=== PATIENT | male | born 1935 | race Caucasian/White ===

== ENCOUNTER → 2017-01-13 | Outpatient (POV) | payer MEDICARE, BC, SELFPAY | PROVIDERS: Family Provider Family Medicine; PCP Family Medicine; Visit Provider Urology | DX: C61 Malignant neoplasm of prostate (principal) | CPT/HCPCS: 87081 ==

== ENCOUNTER 2017-01-28 17:30 | Outpatient (RCR) | payer MEDICARE, BC, SELFPAY | END 2017-02-20 | LOC: PT 17:30 | PROVIDERS: PCP Family Medicine; Visit Provider Family Medicine | DX: L97.529 Non-pressure chronic ulcer of other part of left foot with unspecified severity (principal); E11.621 Type 2 diabetes mellitus with foot ulcer | CPT/HCPCS: G8990; G8991; G8992; 97162; 97597 ==

== ENCOUNTER → 2017-02-10 | Outpatient (POV) | payer MEDICARE, BC, SELFPAY | PROVIDERS: Visit Provider Internal Medicine | DX: I10 Essential (primary) hypertension (principal) | CPT/HCPCS: 93005 ==

== ENCOUNTER → 2017-02-18 | Outpatient (CLI) | payer MEDICARE, BC, SELFPAY | PROVIDERS: Visit Provider Urology | DX: C61 Malignant neoplasm of prostate (principal) | CPT/HCPCS: 36415; 84153 ==

== ENCOUNTER 2017-02-24 15:11 | Inpatient (IN) | payer MEDICARE, BC, SELFPAY ==
[2017-02-24] VITALS (16 sets, daily range): BP systolic 131–248; BP diastolic 51–104; PULSE 54–85; RESP 13–20; TEMP 36.3–36.6; O2SAT 93–99
--- NOTE | 2017-02-24 17:24 | HMH.HP ---
*Admission Date: 02/24/17 <Ambika Orozco 02/24/17 17:33> *Chief complaint: hypertension <Ambika Orozco 02/24/17 18:24> *History of present illness: Mr Rivas is a 81 year old male with a history of ASCVD, AVR, PVD Type 2 DM, RI and prostate cancer was seen in Dr. Corona office with noted high BP; he then had an appointment with acute dialysis registered nurse with BP noted to be extremely high (SBP>200 and DBP >110). Dr. Bhatia consulted with Dr. Baum and he was directly admitted to [facility] and placed on Nitroprusside gtt Recent MRI of the left great toe revealed osteomyelitis; he was seeing Dr. Bhatia for clearance for surgical intervention by Dr. Baeza. <Ambika Orozco 02/24/17 19:14> [facility] History Medical History: Reports:: Congestive Heart Failure, Coronary Artery Disease, Diabetes Mellitus Type 2, Hyperlipidemia, Hypertension, Peripheral Artery Disease, Renal Disease <Ambika Orozco 02/24/17 17:33> Other Medical History: Reports: Anemia, Arthritis <Ambika Orozco 02/24/17 17:33> Comment: DJD of the right knee; VD; sleep apnea; prostate cancer <Ambika Orozco 02/24/17 17:33> Laterality Cases: Right: Carotid Endarterectomy (2000; left 2007), Bilateral: Cataract <Ambika Orozco 02/24/17 17:33> Other Surgeries: Yes: Other (AVR/triple bypass 2007; pTCA L leg 2008; angioplasty of left leg 2009) <Ambika Orozco 02/24/17 17:33> - *Social History Smoking Status: Never smoker <Ambika Orozco 02/24/17 17:33> Alcohol Intake: never <Ambika Orozco 02/24/17 17:33> *Family Hx:: Coronary Artery Disease, Diabetes <Ambika Orozco 02/24/17 17:33> Comment: lung cancer <Ambika Orozco 02/24/17 17:33> Review of Systems - Constitutional Denies anorexia, Denies body ache(s), Denies fatigue, Denies headache(s) <Ambika Orozco 02/24/17 19:14> - ENT Reports abnormal hearing, Denies ear pain, Denies headache(s), Denies sore throat <Orozco,[facility] 02/24/17 19:14> - *Cardiovascular Reports leg sores, Denies chest pain, Denies excessive sweating, Denies shortness of breath, Denies generalized swelling, Denies irregular heart rhythm <Orozco,[facility] 02/24/17 19:14> - *Respiratory Denies chest congestion, Denies cough, Denies shortness of breath <Orozco,[facility] 02/24/17 19:14> - *Gastrointestinal Denies change in bowel habits, Denies change in stools, Denies constipation, Denies vomiting blood, Denies black, tarry stools, Denies nausea <[facility] 02/24/17 19:14> - *Genitourinary Denies difficulty urinating <Orozco,[facility] 02/24/17 19:14> - *Musculoskeletal Reports abnormal walking, Reports joint pain <[facility] 02/24/17 19:14> - *Neurologic Reports abnormal walking, Reports abnormal hearing, Reports lack of coordination <Orozco,[facility] 02/24/17 19:14> Meds Home Medications Medication Instructions Recorded Confirmed Type aspirin 81 mg tablet,delayed 81 mg PO DAILY tab 02/19/17 02/25/17 History release carvedilol 25 mg tablet 25 mg PO BID tab 02/19/17 02/25/17 History clonidine HCl 0.2 mg tablet 0.2 mg PO BID tab 02/19/17 02/25/17 History clopidogrel 75 mg tablet 75 mg PO DAILY tab 02/19/17 02/25/17 History docusate sodium 250 mg capsule 250 mg PO DAILY cap 02/19/17 02/25/17 History hsnqhawp-jrw-ymshk acid 300 1 tab PO DAILY each 02/19/17 02/25/17 History mcg-lycopene 600 mcg-lutein 300 mcg tablet mupirocin 2 % topical ointment 1 applicatio TOPICAL DAILY g 02/19/17 02/25/17 History tramadol 50 mg tablet 50 mg PO TIDP tab 02/19/17 02/25/17 History triamcinolone acetonide 0.1 1 applic TOPICAL DAILY g 02/19/17 02/25/17 History %-emollient combination no86 topical cream Betamethasone/Propylene Glyc 15 gm TP BID 02/24/17 02/25/17 History [Betamethasone Dp Aug 0.05% Crm] metOLazone [Metolazone 5mg Tab] 5 mg PO DAILY 02/24/17 02/25/17 History <Taco Baum - 02/25/17 10:59> Allergies Allergy/AdvReac Type Severity Reaction Status Date / Time No Known Allergies A
--- NOTE | 2017-02-24 17:28 | P.HP_ITS ---
*Admission Date: 02/24/17 <Ambika Orozco 02/24/17 17:33> *Chief complaint: hypertension <Ambika Orozco 02/24/17 18:24> *History of present illness: Mr Rivas is a 81 year old male with a history of ASCVD, AVR, PVD Type 2 DM, RI and prostate cancer was seen in Dr. Corona office with noted high BP; he then had an appointment with business analyst with BP noted to be extremely high (SBP> 200 and DBP >110). Dr. Bhatia consulted with Dr. Baum and he was directly admitted to [facility] and placed on Nitroprusside gtt Recent MRI of the left great toe revealed osteomyelitis; he was seeing Dr. Bhatia for clearance for surgical intervention by Dr. Baeza. <Ambika Orozco 02/24/17 19:14> [facility] History Medical History: Reports:: Congestive Heart Failure, Coronary Artery Disease, Diabetes Mellitus Type 2, Hyperlipidemia, Hypertension, Peripheral Artery Disease, Renal Disease <Ambika Orozco 02/24/17 17:33> Other Medical History: Reports: Anemia, Arthritis <Ambika Orozco 02/24/17 17 :33> Comment: DJD of the right knee; VD; sleep apnea; prostate cancer <Ambika Orozco 02/24/17 17:33> Laterality Cases: Right: Carotid Endarterectomy (2000; left 2007), Bilateral: Cataract <Ambika Orozco 02/24/17 17:33> Other Surgeries: Yes: Other (AVR/triple bypass 2007; pTCA L leg 2008; angioplasty of left leg 2009) <Ambika Orozco 02/24/17 17:33> - *Social History Smoking Status: Never smoker <Ambika Orozco 02/24/17 17:33> Alcohol Intake: never <Ambika Orozco 02/24/17 17:33> *Family Hx:: Coronary Artery Disease, Diabetes <Ambika Orozco 02/24/17 17:33 > Comment: lung cancer <Ambika Orozco 02/24/17 17:33> Review of Systems - Constitutional Denies anorexia, Denies body ache(s), Denies fatigue, Denies headache(s) < Ambika Orozco 02/24/17 19:14> - ENT Reports abnormal hearing, Denies ear pain, Denies headache(s), Denies sore throat <Orozco,[facility] 02/24/17 19:14> - *Cardiovascular Reports leg sores, Denies chest pain, Denies excessive sweating, Denies shortness of breath, Denies generalized swelling, Denies irregular heart rhythm <Orozco,[facility] 02/24/17 19:14> - *Respiratory Denies chest congestion, Denies cough, Denies shortness of breath <Orozco, [facility] 02/24/17 19:14> - *Gastrointestinal Denies change in bowel habits, Denies change in stools, Denies constipation, Denies vomiting blood, Denies black, tarry stools, Denies nausea <Orozco [facility] 02/24/17 19:14> - *Genitourinary Denies difficulty urinating <[facility] 02/24/17 19:14> - *Musculoskeletal Reports abnormal walking, Reports joint pain <[facility] 02/24/17 19:14> - *Neurologic Reports abnormal walking, Reports abnormal hearing, Reports lack of coordination <[facility] 02/24/17 19:14> Meds Home Medications Medication Instructions Recorded Confirmed Type aspirin 81 mg tablet,delayed 81 mg PO DAILY tab 02/19/17 02/25/17 History release carvedilol 25 mg tablet 25 mg PO BID tab 02/19/17 02/25/17 History clonidine HCl 0.2 mg tablet 0.2 mg PO BID tab 02/19/17 02/25/17 History clopidogrel 75 mg tablet 75 mg PO DAILY tab 02/19/17 02/25/17 History docusate sodium 250 mg capsule 250 mg PO DAILY cap 02/19/17 02/25/17 History aqvidkcn-tda-aotmt acid 300 1 tab PO DAILY each 02/19/17 02/25/17 History mcg-lycopene 600 mcg-lutein 300 mcg tablet mupirocin 2 % topical ointment 1 applicatio TOPICAL DAILY g 02/19/17 02/25/17 History tramadol 50 mg tablet 50 mg PO TIDP tab 02/19/17 02/25/17 History triamcinolone acetonide 0.1 1
[2017-02-25] VITALS (48 sets, daily range): BP systolic 127–226; BP diastolic 49–123; PULSE 57–90; RESP 13–24; TEMP 36.3–37; O2SAT 92–100
--- NOTE | 2017-02-25 05:24 | PC.NURSE ---
TITRATED DRIP UP AND DOWN THOUGHOUT SHIFT 2225 - 26ml/hr 2320 - 48 ml/hr 0030 - 40 ml/hr 0430 - 48 ml/hr PT CV/O BLOOD PRESSURE CUFF HURTING HIS ARM. TOOK CUFF OFF - MASSAGED ARM, TRIED TO SWITCH ARMS BUT DRIP GOING IN RIGHT ARM, RETURNED CUFF TO LEFT ARM. BP UP AND DOWN WITH DRIP TITRATED TO KEEP BP DOWN AND ACCORDING TO ORDER. PT IN RECLINER MOST OF SHIFT, REPORTS THAT'S HOW HE SLEEPS AT HOME. IS LITERALLY RIGHT BY HIS SIDE. ENCOURAGED TO ALLOW STAFF TO PROVIDE CARE WHEN NEEDED. PT HAD ONE EPISODE OF VOMITING, CLEAR IN COVERS, DIFFICULT TO SEE HOW MUCH. PT REPORTED HE HAD NO WARNING, JUST SUDDENLY THREW UP. NO C/O CHEST PAIN, NO DIAPHORESIS, NO S/S OF HEART PROBLEMS. PT AND DOZED ON AND OFF THIS SHIFT WITH NEITHER GETTING MUCH SLEEP. NPO FOR EMMY CONSULT THIS AM. REMAINED SAFE THIS SHIFT.
--- NOTE | 2017-02-25 06:49 | PC.NURSE ---
INCREASED PT'S DRIP AGAIN TO 72 R/T ELEVATED BP. 0615 -181/88, 0645 - 161/110. WILL CONTINUE TO MONITOR.
--- NOTE | 2017-02-25 07:08 | PC.NURSE ---
Pt stated not interested. Brochure given
[2017-02-25 07:35] LABS: Basophils # 0.1 K/mm3 (0-0.2); Basophils % 0.6 % (0.1-2.0); Eosinophils # 0.2 K/mm3 (0.0-0.4); Eosinophils % 2.2 % (0.1-12.0); Hematocrit 28.7 % (42.0-52.0); Hemoglobin 9.1 g/dL (14.1-18.0); Lymphocytes # 1.1 K/mm3 (0.7-4.5); Lymphocytes % 12.3 K/mm3 (10-50); Mean Corpuscular HGB Conc 31.6 g/dL (31.8-35.4); Mean Corpuscular Hemoglobin 28.6 pg (27.0-31.2); Mean Corpuscular Volume 90.3 fl (80-94); Mean Platelet Volume 7.5 fl (7.4-10.4); Monocytes # 0.6 K/mm3 (0.1-1.0); Monocytes % 6.6 % (1.7-9.3); Neutrophils # 6.9 K/mm3 (1.8-7.8); Neutrophils % 78.3 % (37.0-80.0); Platelet Count 382 K/mm3 (142-424); Red Blood Count 3.18 M/mm3 (4.60-6.20); Red Cell Distribution Width 13.3 % (11.5-17.5); White Blood Count 8.8 K/mm3 (4.8-10.8)
[2017-02-25 07:41] LABS: Alanine Aminotransferase 20 U/L (12-78); Albumin/Globulin Ratio 0.9 (1.1-1.8); Alkaline Phosphatase 43 U/L (46-116); Anion Gap 10.9 mEq/L (5-15); Aspartate Amino Transferase 29 U/L (15-37); Bilirubin,Total 0.3 mg/dL (0.2-1.0); Blood Urea Nitrogen 43 mg/dL (7-18); Calcium 9.8 mg/dL (8.5-10.1); Carbon Dioxide 26 mmol/L (21.0-32.0); Chloride 105 mmol/L (98-107); Creatinine Clearance Estimated 29 mg/ml (0-300); Estimated Glomerular Filt Rate 26 ml/min (>60); GFR (African American) 32 ML/MIN (>60); Globulin 3.4 gm/dl (1.3-3.2); Glucose 220 mg/dL (74-106); Magnesium 1.9 mg/dL (1.4-2.2); Potassium 3.9 mmoL/L (3.5-5.1); Sodium 138 mmol/L (136-145); Total Protein,Serum 6.4 gm/dL (6.4-8.2)
--- NOTE | 2017-02-25 08:05 | HMH.PHAVTE ---
[facility] Pharmacy VTE Monitoring - Patient Demographics Admission date: 02/24/17 Report Date: 02/25/17 Time: 08:05 Allergies/Adverse Reactions: No Known Allergies Allergy (Unverified 02/10/17 14:34) Height: 1.75 m Weight: 82.236 kg Patient Problems: Current Active Problems (Last Reviewed 02/24/17 @ 18:36 by Desirae Quan RN) ASCVD (arteriosclerotic cardiovascular disease) (Chronic) Diabetes mellitus (Chronic) PVD (peripheral vascular disease) (Chronic) Prostate cancer (Chronic) Osteomyelitis (Acute) - VTE Risk Labs: VTE Related Lab Results Hgb 9.1 g/dL (14.1-18.0) L 02/25/17 06:22 Hct 28.7 % (42.0-52.0) L 02/25/17 06:22 Plt Count 382 K/mm3 (142-424) 02/25/17 06:22 BUN 43 mg/dL (7-18) H 02/25/17 06:22 Creatinine 2.40 mg/dL (0.70-1.30) H 02/25/17 06:22 Estimated Creat Clear 29 mg/ml (0-300) 02/25/17 06:22 Clinical Trial Participant: No - Prophylaxis VTE Prophylaxis Ordered?: Yes Types of VTE Prophylaxis: TEDS Knee High Location of Applied Device: Bilateral Lower Extremeties
--- NOTE | 2017-02-25 08:25 | HMH.ACPN ---
Internal Medicine - PN: Subj *Date: 02/25/17 *Time: 08:25 Interval history: Pt states his BP has been up and down. He denies any pain. He did not rest well last night. He is NPO this am for a cardiology consult. Exam Vital signs and Labs for Last 24 Hours: Temp Pulse Resp BP Pulse Ox 97.4 F L 78 13 196/84 95 02/25/17 05:14 02/25/17 07:00 02/25/17 07:00 02/25/17 07:00 02/25/17 07:00 Short CBC 02/25/17 Range/Units 06:22 WBC 8.8 (4.8-10.8) K/mm3 Hgb 9.1 L (14.1-18.0) g/dL Hct 28.7 L (42.0-52.0) % Plt Count 382 (142-424) K/mm3 BMP 02/25/17 06:22 Sodium 138 Potassium 3.9 Chloride 105 Carbon Dioxide 26 BUN 43 H Creatinine 2.40 H Glucose 220 H Calcium 9.8 Liver Function 02/25/17 Range/Units 06:22 Total Bilirubin 0.3 (0.2-1.0) mg/dL AST 29 (15-37) U/L ALT 20 (12-78) U/L Alkaline Phosphatase 43 L (46-116) U/L Albumin 3.0 L (3.4-5.0) gm/dL I & O for Last 24 hours: Intake & Output 02/22/17 02/23/17 02/24/17 02/25/17 11:59 11:59 11:59 11:59 Intake Total 643.000 / 643.000 Output Total 795 / 795 Balance -152.000 / -152.000 no acute distress - *Routine Respiratory Exam Present: CTA bilaterally - *Routine Cardiovascular Exam Present: RRR - *Routine Abdominal Exam Present: soft, normoactive bowel sounds. Absent: tenderness - *Routine Extremities Exam Absent: edema Assessment and Plan (1) Asymptomatic hypertensive urgency Current visit: Yes Status: Acute Category: Medical Code(s): I16.0 - Hypertensive urgency (2) HHD (hypertensive heart disease) Current visit: No Status: Chronic Category: Medical Code(s): I11.9 - Hypertensive heart disease without heart failure (3) Osteomyelitis Current visit: Yes Status: Acute Category: Medical Code(s): M86.9 - Osteomyelitis, unspecified (4) ASCVD (arteriosclerotic cardiovascular disease) Current visit: Yes Status: Chronic Category: Medical Code(s): I25.10 - Atherosclerotic heart disease of [place] coronary artery without angina pectoris (5) Diabetes mellitus Current visit: Yes Status: Chronic Category: Medical Code(s): E11.9 - Type 2 diabetes mellitus without complications (6) PVD (peripheral vascular disease) Current visit: Yes Status: Chronic Category: Medical Code(s): I73.9 - Peripheral vascular disease, unspecified (7) Prostate cancer Current visit: Yes Status: Chronic Category: Medical Code(s): C61 - Malignant neoplasm of prostate - Assessment and plan all Dx Assessment and Plan for all problems:: Cardiology to see patient today d/t elevated BP. Pt seen and examined. does report this morning that he has had some episodes of confusion over the past few days. He still denies headache, CP, SOA, dizziness.
[2017-02-25 12:11] LABS: POC Glucose,Bedside 361 mg/dL
--- NOTE | 2017-02-25 13:34 | CARE MANAGER ---
Patient was admitted ACUTE with a diagnosis of hypertensive urgency. Her treatment plan will include IV meds, moitoring and investigative studies. CM staff will follow and assist.
--- NOTE | 2017-02-25 14:51 | HMH.CARDPN2 ---
Subjective PN (PG) Date: 02/25/17 Time: 14:51 Principal diagnosis: Hypertensive urgency Interval history: No complaints. Legs much improved. Still on Nipride but with reported shortage in pharmacy. Will switch meds around to wean off nipride. Do not want to perform angiogram due to CRF with Cr of 2.4-2.5 and high likelihood of progressing to dialysis. PN Exam ([facility]) Vital signs: Temp Pulse Resp BP Pulse Ox 98 F 74 22 151/68 95 02/25/17 12:00 02/25/17 12:34 02/25/17 12:34 02/25/17 12:34 02/25/17 12:34 - Constitutional no acute distress - Routine Respiratory Exam Present: distant breath sounds - Routine Cardiovascular Exam Present: RRR - Routine Extremities Exam Present: edema Comments: left leg wrapped. A/P Progress Note ([facility] Own[facility]) (1) Asymptomatic hypertensive urgency Status: Acute Assessment and plan: Will stop norvasc and clonidine to reduce edema. Wean off nipride as able. Will use IV nitroglycerin to help with BP. Increase coreg to 37.5 mg BID Add lisinopril 20 mg BID and follow renal status closely. If needed, then consider pacemaker to allow increased use of beta andrea. Current Visit: Yes (2) Osteomyelitis Status: Acute Current Visit: Yes (3) ASCVD (arteriosclerotic cardiovascular disease) Status: Chronic Assessment and plan: clinically stable. Current Visit: Yes (4) Diabetes mellitus Status: Chronic Current Visit: Yes (5) PVD (peripheral vascular disease) Status: Chronic Current Visit: Yes (6) HHD (hypertensive heart disease) Status: Chronic Current Visit: No (7) CRF (chronic renal failure) Status: Acute Assessment and plan: Will get renal duplex to assess for LULI as possible etiology for difficult HTN to control. Current Visit: Yes - Time Spent With Patient less than 15 minutes (Pt seen with Dr. Bhatia.)
--- NOTE | 2017-02-25 14:54 | P.PN_ITS ---
Subjective PN (PG) Date: 02/25/17 Time: 14:51 Principal diagnosis: Hypertensive urgency Interval history: No complaints. Legs much improved. Still on Nipride but with reported shortage in pharmacy. Will switch meds around to wean off nipride. Do not want to perform angiogram due to CRF with Cr of 2.4-2.5 and high likelihood of progressing to dialysis. PN Exam ([facility]) Vital signs: Temp Pulse Resp BP Pulse Ox 98 F 74 22 151/68 95 02/25/17 12:00 02/25/17 12:34 02/25/17 12:34 02/25/17 12:34 02/25/17 12:34 - Constitutional no acute distress - Routine Respiratory Exam Present: distant breath sounds - Routine Cardiovascular Exam Present: RRR - Routine Extremities Exam Present: edema Comments: left leg wrapped. A/P Progress Note ([facility]) (1) Asymptomatic hypertensive urgency Status: Acute Assessment and plan: Will stop norvasc and clonidine to reduce edema. Wean off nipride as able. Will use IV nitroglycerin to help with BP. Increase coreg to 37.5 mg BID Add lisinopril 20 mg BID and follow renal status closely. If needed, then consider pacemaker to allow increased use of beta andrea. Current Visit: Yes (2) Osteomyelitis Status: Acute Current Visit: Yes (3) ASCVD (arteriosclerotic cardiovascular disease) Status: Chronic Assessment and plan: clinically stable. Current Visit: Yes (4) Diabetes mellitus Status: Chronic Current Visit: Yes (5) PVD (peripheral vascular disease) Status: Chronic Current Visit: Yes (6) HHD (hypertensive heart disease) Status: Chronic Current Visit: No (7) CRF (chronic renal failure) Status: Acute Assessment and plan: Will get renal duplex to assess for LULI as possible etiology for difficult HTN to control. Current Visit: Yes - Time Spent With Patient less than 15 minutes (Pt seen with Dr. Bhatia.)
--- NOTE | 2017-02-25 18:51 | PC.NURSE ---
PATIENT HAS BEEN SITTING IN CHAIR T/O SHIFT. DENIES PAIN AT THIS TIME. NIPRIDE AND NITRO GTTS ARE CURRENTLY INFUSING AT 0.488 MCG/KG/MIN AND 110MCG RESPECTIVELY. HE HAS BEEN NSR ON TELEMETRY. DR VINES WAS CONTACTED AT DINNER TIME TO REQUEST SSI FOR PATIENT WITH A FSBS OF 493. MEDIUM INTENSITY WAS ORDERED AND ADMINISTERED PER APR. CALL LIGHT WITHIN REACH WILL CONTINUE TO MONITOR
[2017-02-25 21:29] LABS: POC Glucose,Bedside 493 mg/dL
[2017-02-25 21:29] LABS: POC Glucose,Bedside 129 mg/dL
[2017-02-26] VITALS (54 sets, daily range): BP systolic 111–222; BP diastolic 47–125; PULSE 50–781; RESP 12–97; TEMP 36.8–38.1; O2SAT 90–98
--- NOTE | 2017-02-26 02:53 | PC.NURSE ---
Drips titrated this shift; Nitro - 2115 from 33 to 34ml/hr Nipride - 2130 from 12 to 19 Nipride - 2300 - from 19 to 15 Nipride - 0100 - from 15 to 14 BP still fluctuating pt sat in chair all shift, nothing acute to report, remained safe,.
--- NOTE | 2017-02-26 04:20 | PC.NURSE ---
Increased Nitro to 40 - Nipride to 19. recent bp's elevated 215/72, 179/86, 185/74, will continue to monitor. pt been in chair all shift, moves back and forth, will occasionally lay back but majority of time huches over forward. He is quite restless with constantly moving hands fidgeting with wires, oxygen monitor, iv, bst, he is in constant motion. Ran wires up his gown and through the back as he removes a lead approximately every 30-40 mins. Encouraged pt to rest, it was reported in shift report last night, pt had slept most of the day as he is not sleeping at night much. Will continue monitoring and recording bp's and titrating drips accordingly. pt remained safe this shit.
[2017-02-26 06:29] LABS: POC Glucose,Bedside 243 mg/dL
[2017-02-26 08:01] LABS: POC Glucose,Bedside 296 mg/dL
[2017-02-26 08:01] LABS: POC Glucose,Bedside 237 mg/dL
--- NOTE | 2017-02-26 08:20 | PC.NURSE ---
at this time patient is to remain npo until radiology takes patient down for tests. educated this to patient. will continue to monitor
--- NOTE | 2017-02-26 08:25 | HMH.CARDPN2 ---
Subjective PN (PG) Date: 02/26/17 Time: 08:00 Principal diagnosis: Hypertensive urgency Interval history: No complaints. Legs much improved. Still on Nipride but with weaning off. No complaints but notes some confusion this AM. Not sleeping well here in hospital. History of KYARA but intolerant of the CPAP. Nitroglycerin gtt at 40 mcg/ min. BP labile per nurse with SBP from 120-190 mm Hg. Do not want to perform angiogram due to CRF with Cr of 2.4-2.5 and high likelihood of progressing to dialysis. Will check renal duplex today to assess for LULI. PN Exam ([facility]) Vital signs: Temp Pulse Resp BP Pulse Ox 98.8 F 88 19 117/102 90 L 02/26/17 08:22 02/26/17 06:30 02/26/17 05:30 02/26/17 06:30 02/26/17 06:30 - Constitutional no acute distress Comments: Sitting in chair in NAD. Answers 2018, Ronnie, my beautiful to year, place and familiar person. No complaint of chest pain. Doesn't ambulate much except in room. - Routine Cardiovascular Exam Present: RRR, murmur A/P Progress Note ([facility]) (1) Asymptomatic hypertensive urgency Status: Acute Assessment and plan: Will increase coreg to 50 mg BID to try and get off IV gtt's. Check BMP and renal duplex. Consider increasing lisinopril as renal status tolerates. Current Visit: Yes (2) Osteomyelitis Status: Acute Current Visit: Yes (3) ASCVD (arteriosclerotic cardiovascular disease) Status: Chronic Current Visit: Yes (4) Diabetes mellitus Status: Chronic Current Visit: Yes (5) PVD (peripheral vascular disease) Status: Chronic Current Visit: Yes (6) HHD (hypertensive heart disease) Status: Chronic Current Visit: No (7) CRF (chronic renal failure) Status: Acute Current Visit: Yes
--- NOTE | 2017-02-26 08:28 | P.PN_ITS ---
Subjective PN (PG) Date: 02/26/17 Time: 08:00 Principal diagnosis: Hypertensive urgency Interval history: No complaints. Legs much improved. Still on Nipride but with weaning off. No complaints but notes some confusion this AM. Not sleeping well here in hospital. History of KYARA but intolerant of the CPAP. Nitroglycerin gtt at 40 mcg / min. BP labile per nurse with SBP from 120-190 mm Hg. Do not want to perform angiogram due to CRF with Cr of 2.4-2.5 and high likelihood of progressing to dialysis. Will check renal duplex today to assess for LULI. PN Exam ([facility]) Vital signs: Temp Pulse Resp BP Pulse Ox 98.8 F 88 19 117/102 90 L 02/26/17 08:22 02/26/17 06:30 02/26/17 05:30 02/26/17 06:30 02/26/17 06:30 - Constitutional no acute distress Comments: Sitting in chair in NAD. Answers 2018, Ronnie, my beautiful to year, place and familiar person. No complaint of chest pain. Doesn't ambulate much except in room. - Routine Cardiovascular Exam Present: RRR, murmur A/P Progress Note ([facility]) (1) Asymptomatic hypertensive urgency Status: Acute Assessment and plan: Will increase coreg to 50 mg BID to try and get off IV gtt's. Check BMP and renal duplex. Consider increasing lisinopril as renal status tolerates. Current Visit: Yes (2) Osteomyelitis Status: Acute Current Visit: Yes (3) ASCVD (arteriosclerotic cardiovascular disease) Status: Chronic Current Visit: Yes (4) Diabetes mellitus Status: Chronic Current Visit: Yes (5) PVD (peripheral vascular disease) Status: Chronic Current Visit: Yes (6) HHD (hypertensive heart disease) Status: Chronic Current Visit: No (7) CRF (chronic renal failure) Status: Acute Current Visit: Yes
--- NOTE | 2017-02-26 09:00 | AS_ITS ---
Renal Arterial Duplex Indications: 405.91 Unspecified renovascular hypertension. 584.9 Acute renal failure unspecified. IMPRESSIONS 1. Normal bilateral renal artery evaluation. 2. Mildly elevated velocities are noted at the mid abdominal aorta. 3. No evidence of renal artery stenosis in segments visualized. Complete renal arterial duplex. Duplex scan and Doppler flow study including spectral analysis, color and hernandez scale imaging. Height: Height: 175.3cm. Height: 69in. Weight: Weight: 82.1kg. Weight: 180.6lb. Body mass index: BMI: 26.7kg/m^2. Body surface area: BSA: 2.01m^2. Patient status: Outpatient. Tables: Arterial flow: + +--------+--------+---------+ Location V sys V ed Resistive + +--------+--------+---------+ Right renal - mid 65.2cm/s 20.6cm/s --------- + +--------+--------+---------+ Right renal - distal 93.9cm/s 22.5cm/s --------- + +--------+--------+---------+ Left renal - distal 58cm/s 14.5cm/s --------- + +--------+--------+---------+ Abdominal aorta - mid aorta 186cm/s 25.7cm/s 0.86 + +--------+--------+---------+ Renal anatomy: + +------+------+ Left Right + +------+------+ Long axis 10.5cm 10.6cm + +------+------+ Short axis 5.3cm 5.7cm + +------+------+ Velocity ratios: + +-----+ V sys + +-----+ Right renal/aortic 0.5 + +-----+ Left renal/aortic 0.31 + +-----+ (Report amended ) Electronically signed by: Akash Carrasco [id number]
[2017-02-26 09:42] LABS: Anion Gap 10.9 mEq/L (5-15); Blood Urea Nitrogen 46 mg/dL (7-18); Carbon Dioxide 26 mmol/L (21.0-32.0); Chloride 103 mmol/L (98-107); Creatinine Clearance Estimated 26 mg/ml (0-300); Creatinine,Serum 2.71 mg/dL (0.70-1.30); Estimated Glomerular Filt Rate 23 ml/min (>60); GFR (African American) 28 ML/MIN (>60); Glucose 210 mg/dL (74-106); Potassium 3.9 mmoL/L (3.5-5.1); Sodium 136 mmol/L (136-145)
--- NOTE | 2017-02-26 10:30 | HMH.ACPN ---
Internal Medicine - PN: Subj *Date: 02/26/17 *Time: 10:30 Interval history: No new complaints today. Feels about the same. BP still labile. Cardiology making adjustments. Exam Vital signs and Labs for Last 24 Hours: Temp Pulse Resp BP Pulse Ox 98.8 F 78 19 117/102 95 02/26/17 08:22 02/26/17 09:13 02/26/17 05:30 02/26/17 06:30 02/26/17 09:13 BMP 02/26/17 09:15 Sodium 136 Potassium 3.9 Chloride 103 Carbon Dioxide 26 BUN 46 H Creatinine 2.71 H Glucose 210 H I & O for Last 24 hours: Intake & Output 02/23/17 02/24/17 02/25/17 02/26/17 11:59 11:59 11:59 11:59 Intake Total 955.000 / 537.173 6689.15 / 2071.15 Output Total 795 / 795 300 / 300 Balance 160.000 / 416.060 2843.15 / 1771.15 no acute distress - *Routine Respiratory Exam Present: CTA bilaterally - *Routine Cardiovascular Exam Present: RRR - *Routine Abdominal Exam Present: soft, normoactive bowel sounds. Absent: tenderness - *Routine Extremities Exam Present: edema (trace) Assessment and Plan (1) HHD (hypertensive heart disease) Current visit: No Status: Chronic Category: Medical Code(s): I11.9 - Hypertensive heart disease without heart failure (2) Osteomyelitis Current visit: Yes Status: Acute Category: Medical Code(s): M86.9 - Osteomyelitis, unspecified (3) ASCVD (arteriosclerotic cardiovascular disease) Current visit: Yes Status: Chronic Category: Medical Code(s): I25.10 - Atherosclerotic heart disease of [place] coronary artery without angina pectoris (4) Diabetes mellitus Current visit: Yes Status: Chronic Category: Medical Code(s): E11.9 - Type 2 diabetes mellitus without complications (5) PVD (peripheral vascular disease) Current visit: Yes Status: Chronic Category: Medical Code(s): I73.9 - Peripheral vascular disease, unspecified (6) Prostate cancer Current visit: Yes Status: Chronic Category: Medical Code(s): C61 - Malignant neoplasm of prostate (7) Acute delirium Current visit: Yes Status: Acute Category: Medical Code(s): R41.0 - Disorientation, unspecified - Assessment and plan all Dx Assessment and Plan for all problems:: Cardiology making medication adjustments. Will continue current care. Pt seen and examined. notes he is very confused this morning. He is pleasant but does not remember why he is here. No c/o chest pain, headache or dizziness.
[2017-02-26 12:00] LABS: POC Glucose,Bedside 281 mg/dL
--- NOTE | 2017-02-26 13:43 | PC.NURSE ---
CALLED THOR COSTELLO ABOUT DROP IN PATIENT BP, RANGING 120S-117 SYSTOLIC STATED TO GO AHEAD AND TRY TURNING NITROPRUSSIDE OFF AND NITRO DOWN
--- NOTE | 2017-02-26 16:09 | PC.NURSE ---
SOME VITALS WERE UNABLE TO BE OBTAINED, PATIENT AGITATED AND TORE OUT IV AND AND TOOK OFF MONITORING DEVICES. DID CALL MD WITH PATIENT INCREASED CHANGE OF MENTAL STATUS WHO ORDERED A ONETIME DOSE OF 5MG HALDOL IM. HE REMAINED AGITATED FOR ABOUT AND HOUR AFTER UNTIL RETURNED AND NOW IS ASLEEP IN CHAIR. STARTED NITRO BACK UP AT THIS TIME BECAUSE CURRENT BP IS 216/99
--- NOTE | 2017-02-26 19:24 | PC.NURSE ---
PATIENT RESTING AT THIS TIME. NO MORE OUTBURSTS OF NOW. DRESSING INTACT. ONLY HAS NITRO DRIP GOING AT 45ML/HR AT THIS TIME.
[2017-02-26 19:38] LABS: POC Glucose,Bedside 149 mg/dL
[2017-02-27] VITALS (37 sets, daily range): BP systolic 136–196; BP diastolic 61–110; PULSE 40–132; RESP 18–24; TEMP 36.5–38.2; O2SAT 93–98; BMI 26.7
[2017-02-27 01:27] LABS: POC Glucose,Bedside 295 mg/dL
--- NOTE | 2017-02-27 04:04 | PC.NURSE ---
Pt remains uncooperative, pulls off tele, takes off bp cuff, won't leave 02 sat monitor on, pulling at bandage on leg. bp remains high with nitro now at 50 ml/hr. Ativan given x 2 with no results noted, pt actually is worse, so will not give again. Remained in bed following call to Dr Keita, safety is set and goes off quite frequently. Pt does not open eyes and will not follow commands. Can view from stepdown window, will continue to monitor.
[2017-02-27 06:26] LABS: POC Glucose,Bedside 194 mg/dL
[2017-02-27 06:48] LABS: Basophils # 0.1 K/mm3 (0-0.2); Basophils % 0.5 % (0.1-2.0); Eosinophils # 0.2 K/mm3 (0.0-0.4); Eosinophils % 1.7 % (0.1-12.0); Hematocrit 28.5 % (42.0-52.0); Hemoglobin 8.8 g/dL (14.1-18.0); Lymphocytes # 1.1 K/mm3 (0.7-4.5); Lymphocytes % 9.6 K/mm3 (10-50); Mean Corpuscular Volume 90.4 fl (80-94); Mean Platelet Volume 7.3 fl (7.4-10.4); Monocytes # 0.8 K/mm3 (0.1-1.0); Monocytes % 6.7 % (1.7-9.3); Neutrophils # 9.4 K/mm3 (1.8-7.8); Neutrophils % 81.5 % (37.0-80.0); Platelet Count 321 K/mm3 (142-424); Red Blood Count 3.15 M/mm3 (4.60-6.20); Red Cell Distribution Width 13.3 % (11.5-17.5); White Blood Count 11.5 K/mm3 (4.8-10.8)
[2017-02-27 07:11] LABS: Alanine Aminotransferase 28 U/L (12-78); Albumin Level 2.7 gm/dL (3.4-5.0); Albumin/Globulin Ratio 0.8 (1.1-1.8); Alkaline Phosphatase 40 U/L (46-116); Anion Gap 10.9 mEq/L (5-15); Aspartate Amino Transferase 48 U/L (15-37); Bilirubin,Total 0.4 mg/dL (0.2-1.0); Blood Urea Nitrogen 43 mg/dL (7-18); Calcium 9.4 mg/dL (8.5-10.1); Carbon Dioxide 26 mmol/L (21.0-32.0); Chloride 102 mmol/L (98-107); Creatinine Clearance Estimated 28 mg/ml (0-300); Estimated Glomerular Filt Rate 25 ml/min (>60); GFR (African American) 30 ML/MIN (>60); Globulin 3.4 gm/dl (1.3-3.2); Glucose 214 mg/dL (74-106); Potassium 3.9 mmoL/L (3.5-5.1); Sodium 135 mmol/L (136-145); Thyroid Stimulating Hormone 2.13 uIU/ml (0.358-3.740); Total Protein,Serum 6.1 gm/dL (6.4-8.2)
--- NOTE | 2017-02-27 07:32 | PC.NURSE ---
Pt had a rough night. Became more confused as the night went on. Ativan given in earlier shift with no results. Pt moved to bed around midnight with safety set. Restless, pulling off tele, oxygen probe, gown, covers, basically anything that he could get off, replaced many times. Pt did not however pull at his iv. Tried Ativan again with pt's condition worsening, became combative and more confused. When ativan was given, stopped nitro drip, flushed with good blood return, however with check approximately 0600 - some swelling noted below IV in a dependent area. Removed that iv and started another #20 in rfa w/o difficulty and pt tolerated well. Man issue is pt's bp, unable to keep it down, pt is so restless and fidgety it is difficult to even get an accurate manual bp pressure. is emotional concerning pt's condition. Report given to Cassidy Infante RN.
--- NOTE | 2017-02-27 07:49 | PC.NURSE ---
Recorded BP by monitor are not correct, manual bp's obtained instead and recorded.
--- NOTE | 2017-02-27 07:53 | HMH.CARDPN2 ---
Subjective PN (PG) Date: 02/27/17 Time: 07:40 Principal diagnosis: Hypertensive urgency Interval history: Nurses relate restless night. Patient agitated and pulling at IV and clothing. is upset and states that this is not the man on know referring to his agitation, restlessness and change in personality. Nursing relates doses of Haldol and Ativan given overnight for agitation which may have had the opposite effect on the patient. The nitroprusside is turned off since yesterday. Patient is on nitroglycerin IV with blood pressures ranging in the 140s-190s systolic range. PN Exam ([facility] Owned) Vital signs: Temp Pulse Resp BP Pulse Ox 97.7 F 95 H 23 157/85 98 02/27/17 06:04 02/27/17 07:00 02/27/17 02:00 02/27/17 07:00 02/27/17 02:00 - Constitutional agitated - Routine Respiratory Exam Present: CTA bilaterally - Routine Cardiovascular Exam Present: RRR, murmur - Routine Psychiatric Exam Present: agitated Comments: Restless. She does not answer questions. A/P Progress Note ([facility] Owned) (1) Asymptomatic hypertensive urgency Status: Acute Assessment and plan: Blood pressure has improved on multiple medications but is still not well-controlled or to goal. Will wean IV nitroglycerin off as able. Continue current PO meds. Current Visit: Yes (2) Osteomyelitis Status: Acute Current Visit: Yes (3) ASCVD (arteriosclerotic cardiovascular disease) Status: Chronic Current Visit: Yes (4) Diabetes mellitus Status: Chronic Current Visit: Yes (5) PVD (peripheral vascular disease) Status: Chronic Current Visit: Yes (6) HHD (hypertensive heart disease) Status: Chronic Current Visit: No (7) CRF (chronic renal failure) Status: Acute Assessment and plan: Stable on current medical treatment. Current Visit: Yes
--- NOTE | 2017-02-27 07:56 | P.PN_ITS ---
Subjective PN (PG) Date: 02/27/17 Time: 07:40 Principal diagnosis: Hypertensive urgency Interval history: Nurses relate restless night. Patient agitated and pulling at IV and clothing. is upset and states that this is not the man on know referring to his agitation, restlessness and change in personality. Nursing relates doses of Haldol and Ativan given overnight for agitation which may have had the opposite effect on the patient. The nitroprusside is turned off since yesterday. Patient is on nitroglycerin IV with blood pressures ranging in the 140s-190s systolic range. PN Exam ([facility] Owned) Vital signs: Temp Pulse Resp BP Pulse Ox 97.7 F 95 H 23 157/85 98 02/27/17 06:04 02/27/17 07:00 02/27/17 02:00 02/27/17 07:00 02/27/17 02:00 - Constitutional agitated - Routine Respiratory Exam Present: CTA bilaterally - Routine Cardiovascular Exam Present: RRR, murmur - Routine Psychiatric Exam Present: agitated Comments: Restless. She does not answer questions. A/P Progress Note ([facility] Owned) (1) Asymptomatic hypertensive urgency Status: Acute Assessment and plan: Blood pressure has improved on multiple medications but is still not well- controlled or to goal. Will wean IV nitroglycerin off as able. Continue current PO meds. Current Visit: Yes (2) Osteomyelitis Status: Acute Current Visit: Yes (3) ASCVD (arteriosclerotic cardiovascular disease) Status: Chronic Current Visit: Yes (4) Diabetes mellitus Status: Chronic Current Visit: Yes (5) PVD (peripheral vascular disease) Status: Chronic Current Visit: Yes (6) HHD (hypertensive heart disease) Status: Chronic Current Visit: No (7) CRF (chronic renal failure) Status: Acute Assessment and plan: Stable on current medical treatment. Current Visit: Yes
--- NOTE | 2017-02-27 08:19 | PC.NURSE ---
Patient agitated this morning.Pulling at lines, punching and kicking at staff and . PRAVIN Roe at bedside this morning requesting this nurse to put the patient in mits. Patient continues to punch and kick with mits on. Unable to take medication or eat related to agitation. Attempted to give patient medications and he attempted to bite this nurse and his . at bedside and visably upset, crying and asking patient to please stop . made aware.
--- NOTE | 2017-02-27 08:23 | HMH.ACPN ---
Internal Medicine - PN: Subj *Date: 02/27/17 *Time: 08:24 Interval history: Nurses relate restless night. Patient agitated and pulling at IV and clothing. is upset. Nursing relates doses of Haldol and Ativan given overnight which may have had the opposite effect on the patient. He is on nitroglycerin IV with blood pressures ranging in the 140s-190s systolic range. He has been seen by cardiology. Exam Vital signs and Labs for Last 24 Hours: Temp Pulse Resp BP Pulse Ox 97.7 F 95 H 23 157/85 98 02/27/17 06:04 02/27/17 07:00 02/27/17 02:00 02/27/17 07:00 02/27/17 02:00 Short CBC 02/27/17 Range/Units 06:05 WBC 11.5 H D (4.8-10.8) K/mm3 Hgb 8.8 L (14.1-18.0) g/dL Hct 28.5 L (42.0-52.0) % Plt Count 321 (142-424) K/mm3 BMP 02/26/17 02/27/17 09:15 06:05 Sodium 136 135 L Potassium 3.9 3.9 Chloride 103 102 Carbon Dioxide 26 26 BUN 46 H 43 H Creatinine 2.71 H 2.50 H Glucose 210 H 214 H Calcium 9.4 Liver Function 02/27/17 Range/Units 06:05 Total Bilirubin 0.4 (0.2-1.0) mg/dL AST 48 H D (15-37) U/L ALT 28 D (12-78) U/L Alkaline Phosphatase 40 L (46-116) U/L Albumin 2.7 L (3.4-5.0) gm/dL I & O for Last 24 hours: Intake & Output 02/24/17 02/25/17 02/26/17 02/27/17 11:59 11:59 11:59 11:59 Intake Total 955.000 / 671.786 2853.15 / 2070.15 1780.5 / 1780.5 Output Total 795 / 795 300 / 300 850 / 850 Balance 160.000 / 921.083 8089.15 / 1771.15 930.5 / 930.5 agitated - *Routine Respiratory Exam Present: CTA bilaterally - *Routine Cardiovascular Exam Present: RRR - *Routine Abdominal Exam Present: soft, normoactive bowel sounds. Absent: tenderness - *Routine Extremities Exam Absent: edema Assessment and Plan (1) HHD (hypertensive heart disease) Current visit: No Status: Chronic Category: Medical Code(s): I11.9 - Hypertensive heart disease without heart failure (2) Osteomyelitis Current visit: Yes Status: Acute Category: Medical Code(s): M86.9 - Osteomyelitis, unspecified (3) ASCVD (arteriosclerotic cardiovascular disease) Current visit: Yes Status: Chronic Category: Medical Code(s): I25.10 - Atherosclerotic heart disease of [place] coronary artery without angina pectoris (4) Diabetes mellitus Current visit: Yes Status: Chronic Category: Medical Code(s): E11.9 - Type 2 diabetes mellitus without complications (5) PVD (peripheral vascular disease) Current visit: Yes Status: Chronic Category: Medical Code(s): I73.9 - Peripheral vascular disease, unspecified (6) Prostate cancer Current visit: Yes Status: Chronic Category: Medical Code(s): C61 - Malignant neoplasm of prostate (7) Encephalopathy Current visit: Yes Status: Acute Category: Medical Code(s): G93.40 - Encephalopathy, unspecified - Assessment and plan all Dx Assessment and Plan for all problems:: Will discuss agitation with Dr. Baum. Cardiology is managing BP. Pt seen and examined. He is restless and not following commands. Speech is garbled. In reviewing nursing notes, it appears he had a better response to the Haldol yesterday than to the Ativan last night so will restart the Haldol. I question if he could have had a neurologic event related to his malignant hypertension and will plan to get CT scan once his agitation is calmed.
--- NOTE | 2017-02-27 08:27 | P.PN_ITS ---
Internal Medicine - PN: Subj *Date: 02/27/17 *Time: 08:24 Interval history: Nurses relate restless night. Patient agitated and pulling at IV and clothing. is upset. Nursing relates doses of Haldol and Ativan given overnight which may have had the opposite effect on the patient. He is on nitroglycerin IV with blood pressures ranging in the 140s-190s systolic range. He has been seen by cardiology. Exam Vital signs and Labs for Last 24 Hours: Temp Pulse Resp BP Pulse Ox 97.7 F 95 H 23 157/85 98 02/27/17 06:04 02/27/17 07:00 02/27/17 02:00 02/27/17 07:00 02/27/17 02:00 Short CBC 02/27/17 Range/Units 06:05 WBC 11.5 H D (4.8-10.8) K/mm3 Hgb 8.8 L (14.1-18.0) g/dL Hct 28.5 L (42.0-52.0) % Plt Count 321 (142-424) K/mm3 BMP 02/26/17 02/27/17 09:15 06:05 Sodium 136 135 L Potassium 3.9 3.9 Chloride 103 102 Carbon Dioxide 26 26 BUN 46 H 43 H Creatinine 2.71 H 2.50 H Glucose 210 H 214 H Calcium 9.4 Liver Function 02/27/17 Range/Units 06:05 Total Bilirubin 0.4 (0.2-1.0) mg/dL AST 48 H D (15-37) U/L ALT 28 D (12-78) U/L Alkaline Phosphatase 40 L (46-116) U/L Albumin 2.7 L (3.4-5.0) gm/dL I & O for Last 24 hours: Intake & Output 02/24/17 02/25/17 02/26/17 02/27/17 11:59 11:59 11:59 11:59 Intake Total 955.000 / 434.978 3581.15 / 2070.15 1780.5 / 1780.5 Output Total 795 / 795 300 / 300 850 / 850 Balance 160.000 / 769.836 4130.15 / 1771.15 930.5 / 930.5 agitated - *Routine Respiratory Exam Present: CTA bilaterally - *Routine Cardiovascular Exam Present: RRR - *Routine Abdominal Exam Present: soft, normoactive bowel sounds. Absent: tenderness - *Routine Extremities Exam Absent: edema Assessment and Plan (1) HHD (hypertensive heart disease) Current visit: No Status: Chronic Category: Medical Code(s): I11.9 - Hypertensive heart disease without heart failure (2) Osteomyelitis Current visit: Yes Status: Acute Category: Medical Code(s): M86.9 - Osteomyelitis, unspecified (3) ASCVD (arteriosclerotic cardiovascular disease) Current visit: Yes Status: Chronic Category: Medical Code(s): I25.10 - Atherosclerotic heart disease of [place] coronary artery without angina pectoris (4) Diabetes mellitus Current visit: Yes Status: Chronic Category: Medical Code(s): E11.9 - Type 2 diabetes mellitus without complications (5) PVD (peripheral vascular disease) Current visit: Yes Status: Chronic Category: Medical Code(s): I73.9 - Peripheral vascular disease, unspecified (6) Prostate cancer Current visit: Yes Status: Chronic Category: Medical Code(s): C61 - Malignant neoplasm of prostate (7) Encephalopathy Current visit: Yes Status: Acute Category: Medical Code(s): G93.40 - Encephalopathy, unspecified - Assessment and plan all Dx Assessment and Plan for all problems:: Will discuss agitation with Dr. Baum. Cardiology is managing BP. Pt seen and examined. He is restless and not following commands. Speech is garbled. In reviewing nursing notes, it appears he had a better response to the Haldol yesterday than to the Ativan last night so will restart the [place]
[2017-02-27 11:32] LABS: POC Glucose,Bedside 194 mg/dL
--- NOTE | 2017-02-27 18:13 | PC.NURSE ---
Patient remains combative at times. Mits remain in place. Dr. Baum notified of patient continuing to have behaviors. Dr. Baum stated to this nurse that he would like to perform a head ct, however with the patient not being able to sit still that it would be unlikely to obtain.
--- NOTE | 2017-02-27 19:15 | PC.NURSE ---
Report given to Neeta Jin RN.
[2017-02-27 21:07] LABS: POC Glucose,Bedside 201 mg/dL
[2017-02-28] VITALS (24 sets, daily range): BP systolic 112–203; BP diastolic 53–99; PULSE 63–90; RESP 18–24; TEMP 36.6–37.9; O2SAT 96–100
--- NOTE | 2017-02-28 03:49 | PC.NURSE ---
PT HAS CONFUSION. HE DOES NOT ANSWER QUESTIONS IN RELATIONSHIP TO HIS NAME OR TIME. HE DOES NOT FOLLOW COMMANDS. HIS PUPILS ARE PINPOINT. HE DID TAKE HIS NIGHT MEDICATIONS AFTER THEY WERE CRUSHED AND PLACED IN APPLESAUCE. LLE IS WRAPPED. PT'S SPOUSE REPORTS THAT WOUND CARE HAS BEEN DOING HIS DSG CHANGES AND THAT HE ALSO HAS A DIABETIC ULCER ON HIS TOE. RLE WITH A ROXY COLOR AND BLISTERS NOTED. PT CONTINUES TO PULL AT HIS BP CUFF. HE HAS BEEN INCONTINENT OF URINE. REAGAN-CARE PROVIDED PER STAFF. HE DID TAKE A COUPLE SIPS OF WATER AFTER TAKING HIS MEDS. POOR PO INTAKE OTHERWISE. HE IS BEING TURNED AND REPOSITIONED Q 2 HOURS. HIS BP HAS REMAINED ELEVATED T/O THE NIGHT. NITRO GTT HAS BEEN INCREASED T/O THE NIGHT IN ATTEMPTS TO GET TO BP TO GOAL. HIS SPOUSE IS AT THE BEDSIDE.
[2017-02-28 04:01] LABS: POC Glucose,Bedside 174 mg/dL
[2017-02-28 06:27] LABS: POC Glucose,Bedside 245 mg/dL
[2017-02-28 06:33] LABS: Basophils % 0.2 % (0.1-2.0); Eosinophils % 0.2 % (0.1-12.0); Hemoglobin 8.8 g/dL (14.1-18.0); Lymphocytes # 0.7 K/mm3 (0.7-4.5); Lymphocytes % 5.7 K/mm3 (10-50); Mean Corpuscular HGB Conc 31.4 g/dL (31.8-35.4); Mean Corpuscular Hemoglobin 28.5 pg (27.0-31.2); Mean Corpuscular Volume 90.7 fl (80-94); Mean Platelet Volume 7.9 fl (7.4-10.4); Monocytes # 0.7 K/mm3 (0.1-1.0); Monocytes % 6.1 % (1.7-9.3); Neutrophils # 10.4 K/mm3 (1.8-7.8); Neutrophils % 87.7 % (37.0-80.0); Platelet Count 326 K/mm3 (142-424); Red Blood Count 3.08 M/mm3 (4.60-6.20); Red Cell Distribution Width 14.2 % (11.5-17.5); White Blood Count 11.9 K/mm3 (4.8-10.8)
[2017-02-28 06:55] LABS: MANUAL DIFFERENTIAL MANUAL DIFFERENTIAL (MANUAL DIFF)
[2017-02-28 07:03] LABS: Anion Gap 16.8 mEq/L (5-15); Blood Urea Nitrogen 37 mg/dL (7-18); Carbon Dioxide 24 mmol/L (21.0-32.0); Chloride 105 mmol/L (98-107); Creatinine Clearance Estimated 33 mL/min (0-300); Creatinine,Serum 2.11 mg/dL (0.70-1.30); Estimated Glomerular Filt Rate 30 ml/min (>60); GFR (African American) 37 ML/MIN (>60); Glucose 229 mg/dL (74-106); Potassium 3.8 mmoL/L (3.5-5.1); Sodium 142 mmol/L (136-145)
--- NOTE | 2017-02-28 07:25 | PC.NURSE ---
REPORT GIVEN TO JUAN CARLOS
--- NOTE | 2017-02-28 07:25 | PC.NURSE ---
Report given to Joni Richard WC/SRNA
--- NOTE | 2017-02-28 08:00 | PC.NURSE ---
0732 NITROGLYCERIN DRIP INCREASED TO 48ML/HR
--- NOTE | 2017-02-28 08:06 | PC.NURSE ---
STARTED NEW BOTTLE OF NITROGLYCERIN- VERIFIED WITH [facility] WILL NOT ALLOW DOCUMENTATION FOR MED IS SCHEDULED ONLY Q12HR. DRIP RUNNING AT 48ML/HR PER TITRATION PER PT VS
--- NOTE | 2017-02-28 08:34 | PC.NURSE ---
NITRO DECREASED TO 45ML/HR
--- NOTE | 2017-02-28 08:52 | P.PN_ITS ---
Internal Medicine - PN: Subj *Date: 02/28/17 *Time: 08:50 Interval history: Patient was not as restless during the night. states he has not been combative this morning. He has not complained of pain. He is still on a nitro drip. Exam Vital signs and Labs for Last 24 Hours: Temp Pulse Resp BP Pulse Ox 97.8 F 75 19 137/74 100 02/28/17 04:00 02/28/17 07:02 02/28/17 04:00 02/28/17 07:02 02/28/17 07:02 Short CBC 02/28/17 Range/Units 05:40 WBC 11.9 H (4.8-10.8) K/mm3 Hgb 8.8 L (14.1-18.0) g/dL Hct 28.0 L (42.0-52.0) % Plt Count 326 (142-424) K/mm3 BMP 02/28/17 05:40 Sodium 142 Potassium 3.8 Chloride 105 Carbon Dioxide 24 BUN 37 H Creatinine 2.11 H Glucose 229 H I & O for Last 24 hours: Intake & Output 02/25/17 02/26/17 02/27/17 02/28/17 11:59 11:59 11:59 11:59 Intake Total 955.000 / 721.981 1773.15 / 2071.15 1936.1 / 1936.1 831.283 / 831.283 Output Total 795 / 795 300 / 300 850 / 850 Balance 160.000 / 480.726 3650.15 / 1771.15 1086.1 / 1086.1 831.283 / 831.283 no acute distress (sleeping) - *Routine Respiratory Exam Present: CTA bilaterally - *Routine Cardiovascular Exam Present: RRR - *Routine Abdominal Exam Present: soft, normoactive bowel sounds. Absent: tenderness Assessment and Plan (1) Malignant essential hypertension Current visit: No Status: Acute Category: Medical Code(s): I10 - Essential (primary) hypertension (2) Hypertensive encephalopathy Current visit: Yes Status: Acute Category: Medical Code(s): I67.4 - Hypertensive encephalopathy (3) HHD (hypertensive heart disease) Current visit: No Status: Chronic Category: Medical Code(s): I11.9 - Hypertensive heart disease without heart failure (4) Osteomyelitis Current visit: Yes Status: Acute Category: Medical Code(s): M86.9 - Osteomyelitis, unspecified (5) ASCVD (arteriosclerotic cardiovascular disease) Current visit: Yes Status: Chronic Category: Medical Code(s): I25.10 - Atherosclerotic heart disease of [place] coronary artery without angina pectoris (6) Diabetes mellitus Current visit: Yes Status: Chronic Category: Medical Code(s): E11.9 - Type 2 diabetes mellitus without complications (7) PVD (peripheral vascular disease) Current visit: Yes Status: Chronic Category: Medical Code(s): I73.9 - Peripheral vascular disease, unspecified (8) Prostate cancer Current visit: Yes Status: Chronic Category: Medical Code(s): C61 - Malignant neoplasm of prostate - Assessment and plan all Dx Assessment and Plan for all problems:: Will continue current care. As noted above, he is less restless but still incoherent. He did take his oral meds last night and asked for water and tool a few sips. Treatment of hypertension and management of drips still per cardiology
[2017-02-28 08:59] LABS: Lymphocytes % 3 % (10-50); Monocytes % 7 % (2-9); Neutrophils % 88 % (42-76); Total Cells Counted 100
[2017-02-28 09:00] LABS: Platelet Estimate Slight Increase; RBC Morphology Normal
--- NOTE | 2017-02-28 09:20 | PC.NURSE ---
decreased nitro drip to 42ml/hr bp 124/67
--- NOTE | 2017-02-28 19:26 | PC.NURSE ---
report given to trey hernandez rn
--- NOTE | 2017-02-28 20:44 | PC.NURSE ---
NURSE NOTIFIED OF PTS TEMP
[2017-03-01] VITALS (20 sets, daily range): BP systolic 124–180; BP diastolic 56–88; PULSE 50–85; RESP 12–22; TEMP 36.8–38.2; O2SAT 92–100
--- NOTE | 2017-03-01 02:07 | PC.NURSE ---
PT'S SPOUSE REPORTED THAT HE SLEPT T/O THE DAY. HE HAS BEEN SLEEPING T/O THIS SHIFT. IS AROUSES TO TACTILE STIMULI. POOR PO INTAKE. HE RECEIVED A PRN MEDICATION FOR ELEVATED TEMP. HE IS BEING TURNED AND REPOSITIONED Q 2 HOURS. HE IS INCONTINENT OF URINE. [facility]-CARE PROVIDED PER STAFF.
--- NOTE | 2017-03-01 02:09 | PC.NURSE ---
pts temp was 100.8 ax AT 00:00. NURSE NOTIFIED. REFUES PTS BATH. RN NOTIFIED
[2017-03-01 02:43] LABS: POC Glucose,Bedside 290 mg/dL
[2017-03-01 06:21] LABS: POC Glucose,Bedside 261 mg/dL
--- NOTE | 2017-03-01 06:45 | PC.NURSE ---
PT IS AWAKE AT THIS TIME. HE IS RESPONDING TO QUESTIONS MORE APPROPRIATELY. HE REPORTS FEELING CONFUSED. HIS SPOUSE IS AT THE BEDSIDE.
--- NOTE | 2017-03-01 08:49 | XR_ITS ---
XR chest portable HISTORY: Fever ITS.REASON: fever ORDERING PHYSICIAN: Taco Baum MD PATIENT AGE: 81 years COMPARISON: 11/06/2014 FINDINGS: Prior median sternotomy with borderline cardiomegaly. No evidence of CHF.. The lungs are clear without infiltrates, suspicious nodules, or pleural effusions. The right hemidiaphragm is elevated as before. No acute bony abnormalities. IMPRESSION: No change with no acute finding. Mild cardiomegaly
--- NOTE | 2017-03-01 08:53 | HMH.ACPN ---
Internal Medicine - PN: Subj *Date: 03/01/17 *Time: 08:53 Interval history: Slept most of the day yesterday but was not agitated. Is waking up and talking this AM. Aware of surroundings. Knows his . Confused as to the day. Denies SPARKS, CP, abdominal pain. Wants to sit up. Eating a little. Noted with fever last night Exam Vital signs and Labs for Last 24 Hours: Temp Pulse Resp BP Pulse Ox 99.9 F H 75 17 167/78 100 03/01/17 05:10 03/01/17 06:36 03/01/17 06:36 03/01/17 06:36 03/01/17 06:36 I & O for Last 24 hours: Intake & Output 02/26/17 02/27/17 02/28/17 03/01/17 11:59 11:59 11:59 11:59 Intake Total 2071.15 / 1.15 1936.1 / 1936.1 831.283 / 831.283 595.95 / 595.95 Output Total 300 / 300 850 / 850 Balance 1771.15 / 1771.15 1086.1 / 1086.1 831.283 / 831.283 595.95 / 595.95 - Constitutional Comments: awake, conversing and answering questions appropriately - *Routine Respiratory Exam Comments: BS diminished in bases. No rales or wheezes - *Routine Cardiovascular Exam Present: RRR - *Routine Abdominal Exam Present: soft. Absent: tenderness, distended - *Routine Extremities Exam Absent: edema Assessment and Plan (1) Malignant essential hypertension Current visit: No Status: Acute Category: Medical Code(s): I10 - Essential (primary) hypertension (2) Hypertensive encephalopathy Current visit: Yes Status: Acute Category: Medical Code(s): I67.4 - Hypertensive encephalopathy (3) HHD (hypertensive heart disease) Current visit: No Status: Chronic Category: Medical Code(s): I11.9 - Hypertensive heart disease without heart failure (4) Osteomyelitis Current visit: Yes Status: Acute Category: Medical Code(s): M86.9 - Osteomyelitis, unspecified (5) ASCVD (arteriosclerotic cardiovascular disease) Current visit: Yes Status: Chronic Category: Medical Code(s): I25.10 - Atherosclerotic heart disease of [place] coronary artery without angina pectoris (6) Diabetes mellitus Current visit: Yes Status: Chronic Category: Medical Code(s): E11.9 - Type 2 diabetes mellitus without complications (7) PVD (peripheral vascular disease) Current visit: Yes Status: Chronic Category: Medical Code(s): I73.9 - Peripheral vascular disease, unspecified (8) Prostate cancer Current visit: Yes Status: Chronic Category: Medical Code(s): C61 - Malignant neoplasm of prostate (9) Fever Current visit: Yes Status: Acute Category: Medical Code(s): R50.9 - Fever, unspecified - Assessment and plan all Dx Assessment and Plan for all problems:: Mental status is beginning to clear. Will check CXR related to elevated WBC and low grade fever. Should be able to take oral meds today and further wean his NTG drip
--- NOTE | 2017-03-01 08:56 | P.PN_ITS ---
Internal Medicine - PN: Subj *Date: 03/01/17 *Time: 08:53 Interval history: Slept most of the day yesterday but was not agitated. Is waking up and talking this AM. Aware of surroundings. Knows his . Confused as to the day. Denies SPARKS, CP, abdominal pain. Wants to sit up. Eating a little. Noted with fever last night Exam Vital signs and Labs for Last 24 Hours: Temp Pulse Resp BP Pulse Ox 99.9 F H 75 17 167/78 100 03/01/17 05:10 03/01/17 06:36 03/01/17 06:36 03/01/17 06:36 03/01/17 06:36 I & O for Last 24 hours: Intake & Output 02/26/17 02/27/17 02/28/17 03/01/17 11:59 11:59 11:59 11:59 Intake Total 2071.15 / 1.15 1936.1 / 1936.1 831.283 / 831.283 595.95 / 595.95 Output Total 300 / 300 850 / 850 Balance 1771.15 / 1771.15 1086.1 / 1086.1 831.283 / 831.283 595.95 / 595.95 - Constitutional Comments: awake, conversing and answering questions appropriately - *Routine Respiratory Exam Comments: BS diminished in bases. No rales or wheezes - *Routine Cardiovascular Exam Present: RRR - *Routine Abdominal Exam Present: soft. Absent: tenderness, distended - *Routine Extremities Exam Absent: edema Assessment and Plan (1) Malignant essential hypertension Current visit: No Status: Acute Category: Medical Code(s): I10 - Essential (primary) hypertension (2) Hypertensive encephalopathy Current visit: Yes Status: Acute Category: Medical Code(s): I67.4 - Hypertensive encephalopathy (3) HHD (hypertensive heart disease) Current visit: No Status: Chronic Category: Medical Code(s): I11.9 - Hypertensive heart disease without heart failure (4) Osteomyelitis Current visit: Yes Status: Acute Category: Medical Code(s): M86.9 - Osteomyelitis, unspecified (5) ASCVD (arteriosclerotic cardiovascular disease) Current visit: Yes Status: Chronic Category: Medical Code(s): I25.10 - Atherosclerotic heart disease of [place] coronary artery without angina pectoris (6) Diabetes mellitus Current visit: Yes Status: Chronic Category: Medical Code(s): E11.9 - Type 2 diabetes mellitus without complications (7) PVD (peripheral vascular disease) Current visit: Yes Status: Chronic Category: Medical Code(s): I73.9 - Peripheral vascular disease, unspecified (8) Prostate cancer Current visit: Yes Status: Chronic Category: Medical Code(s): C61 - Malignant neoplasm of prostate (9) Fever Current visit: Yes Status: Acute Category: Medical Code(s): R50.9 - Fever , unspecified - Assessment and plan all Dx Assessment and Plan for all problems:: Mental status is beginning to clear. Will check CXR related to elevated WBC and low grade fever. Should be able to take oral meds today and further wean his NTG drip
[2017-03-01 18:34] LABS: POC Glucose,Bedside 284 mg/dL
[2017-03-01 20:00] LABS: POC Glucose,Bedside 294 mg/dL
[2017-03-02] VITALS (23 sets, daily range): BP systolic 131–197; BP diastolic 62–98; PULSE 58–90; RESP 12–22; TEMP 36.3–36.9; O2SAT 92–99
[2017-03-02 04:42] LABS: Adenovirus F 40/41, stool Not Detected (NotDetected); Astrovirus Not Detected (NotDetected); Campylobacter Not Detected (NotDetected); Clostridium Difficile A/B, PCR Not Detected (NotDetected); Cryptosporidium Not Detected (NotDetected); Cyclospora Cayetanesis Not Detected (NotDetected); Entamoeba histolytica Not Detected (NotDetected); Enteroaggregative E coli Not Detected (NotDetected); Enteropathogenic E coli Not Detected (NotDetected); Enterotoxigenic E coli Not Detected (NotDetected); Giardia lamblia Not Detected (NotDetected); Norovirus Not Detected (NotDetected); Plesimonas Shigalloides, PCR Not Detected (NotDetected); Rotavirus A Not Detected (NotDetected); Salmonella, PCR Not Detected (NotDetected); Sapovirus Not Detected (NotDetected); Shiga-like toxin E coli Not Detected (NotDetected); Shigella Enterovasive E coli Not Detected (NotDetected); Vibrio Cholerae Not Detected (NotDetected); Vibrio, PCR Not Detected (NotDetected); Yersinia Entercolitica, PCR Not Detected (NotDetected)
--- NOTE | 2017-03-02 04:52 | PC.NURSE ---
PT HAS BEEN AWAKE PERIODICALLY T/O THE NIGHT. WAKING UP AT TIMES T/O THE NIGHT ASKING HIS TO GET HIM UP. HE TOOK HIS MEDS CRUSHED IN APPLESAUCE. POOR PO APPETITE. HE HAS BEEN INCONTINENT OF STOOL AND URINE. REAGAN-CARE PROVIDED PER STAFF. SEVERAL LOOSE STOOLS T/O THE NIGHT WITH FOUL ODOR. HIS IS AT THE BEDSIDE.
[2017-03-02 05:38] LABS: Anion Gap 10.6 mEq/L (5-15); Blood Urea Nitrogen 46 mg/dL (7-18); Carbon Dioxide 28 mmol/L (21.0-32.0); Chloride 105 mmol/L (98-107); Creatinine Clearance Estimated 31 mL/min (0-300); Creatinine,Serum 2.22 mg/dL (0.70-1.30); Estimated Glomerular Filt Rate 29 ml/min (>60); GFR (African American) 35 ML/MIN (>60); Glucose 238 mg/dL (74-106); Potassium 3.6 mmoL/L (3.5-5.1); Sodium 140 mmol/L (136-145)
[2017-03-02 06:07] LABS: Hematocrit 25.9 % (42.0-52.0); Hemoglobin 8.1 g/dL (14.1-18.0); Mean Corpuscular Hemoglobin 28.5 pg (27.0-31.2); Mean Corpuscular Volume 91.1 fl (80-94); Red Blood Count 2.84 M/mm3 (4.60-6.20); White Blood Count 9.3 K/mm3 (4.8-10.8)
[2017-03-02 06:08] LABS: Basophils % 0.2 % (0.1-2.0); Lymphocytes # 0.7 K/mm3 (0.7-4.5); Lymphocytes % 7.2 K/mm3 (10-50); Mean Corpuscular HGB Conc 31.3 g/dL (31.8-35.4); Mean Platelet Volume 7.7 fl (7.4-10.4); Monocytes # 0.6 K/mm3 (0.1-1.0); Monocytes % 6.5 % (1.7-9.3); Neutrophils # 7.9 K/mm3 (1.8-7.8); Neutrophils % 85.1 % (37.0-80.0); Platelet Count 273 K/mm3 (142-424); Red Cell Distribution Width 13.2 % (11.5-17.5)
[2017-03-02 06:09] LABS: Eosinophils # 0.1 K/mm3 (0.0-0.4)
[2017-03-02 06:10] LABS: MANUAL DIFFERENTIAL MANUAL DIFFERENTIAL (MANUAL DIFF)
[2017-03-02 06:31] LABS: POC Glucose,Bedside 280 mg/dL
--- NOTE | 2017-03-02 08:46 | HMH.CARDPN2 ---
Subjective PN (PG) Date: 03/02/17 Time: 08:46 Principal diagnosis: Hypertensive urgency Interval history: relates more awake yesterday and recognized her and daughters. Not taking PO much. Awakens during exam. No chest pains. Wants to go to the bathroom. PN Exam ([facility] Owned) Vital signs: Temp Pulse Resp BP Pulse Ox 97.4 F L 60 19 173/66 93 L 03/02/17 04:07 03/02/17 08:33 03/02/17 06:43 03/02/17 06:43 03/02/17 06:43 - Constitutional no acute distress - Routine Respiratory Exam Present: diminished air movement - Routine Cardiovascular Exam Present: RRR, murmur - Routine Extremities Exam Absent: edema A/P Progress Note ([facility] Owned) (1) Asymptomatic hypertensive urgency Status: Acute Assessment and plan: Will increase lisinopril to 30 mg BID in hopes of weaning off NTG gtt. Cr has been stable and slightly improved (2.5 down to 2.2) Current Visit: Yes (2) Osteomyelitis Status: Acute Current Visit: Yes (3) ASCVD (arteriosclerotic cardiovascular disease) Status: Chronic Current Visit: Yes (4) Diabetes mellitus Status: Chronic Current Visit: Yes (5) PVD (peripheral vascular disease) Status: Chronic Current Visit: Yes (6) HHD (hypertensive heart disease) Status: Chronic Current Visit: No (7) CRF (chronic renal failure) Status: Acute Current Visit: Yes
--- NOTE | 2017-03-02 08:49 | P.PN_ITS ---
Subjective PN (PG) Date: 03/02/17 Time: 08:46 Principal diagnosis: Hypertensive urgency Interval history: relates more awake yesterday and recognized her and daughters. Not taking PO much. Awakens during exam. No chest pains. Wants to go to the bathroom. PN Exam ([facility] Owned) Vital signs: Temp Pulse Resp BP Pulse Ox 97.4 F L 60 19 173/66 93 L 03/02/17 04:07 03/02/17 08:33 03/02/17 06:43 03/02/17 06:43 03/02/17 06:43 - Constitutional no acute distress - Routine Respiratory Exam Present: diminished air movement - Routine Cardiovascular Exam Present: RRR, murmur - Routine Extremities Exam Absent: edema A/P Progress Note ([facility] Owned) (1) Asymptomatic hypertensive urgency Status: Acute Assessment and plan: Will increase lisinopril to 30 mg BID in hopes of weaning off NTG gtt. Cr has been stable and slightly improved (2.5 down to 2.2) Current Visit: Yes (2) Osteomyelitis Status: Acute Current Visit: Yes (3) ASCVD (arteriosclerotic cardiovascular disease) Status: Chronic Current Visit: Yes (4) Diabetes mellitus Status: Chronic Current Visit: Yes (5) PVD (peripheral vascular disease) Status: Chronic Current Visit: Yes (6) HHD (hypertensive heart disease) Status: Chronic Current Visit: No (7) CRF (chronic renal failure) Status: Acute Current Visit: Yes
[2017-03-02 08:52] LABS: POC Glucose,Bedside 313 mg/dL
[2017-03-02 08:53] LABS: POC Glucose,Bedside 315 mg/dL
[2017-03-02 08:53] LABS: POC Glucose,Bedside 235 mg/dL
[2017-03-02 09:45] LABS: Eosinophils % 2 % (0-3); Lymphocytes % 3 % (10-50); Monocytes % 2 % (2-9); Neutrophils % 92 % (42-76); Platelet Estimate Normal; RBC Morphology Normal; Total Cells Counted 100
[2017-03-02 12:05] LABS: POC Glucose,Bedside 219 mg/dL
[2017-03-02 16:55] LABS: POC Glucose,Bedside 199 mg/dL
--- NOTE | 2017-03-02 17:13 | HMH.ACPN ---
Internal Medicine - PN: Subj *Date: 03/02/17 *Time: 07:50 Interval history: Pateint and examined this AM. at bedside and notes he had a pretty good morning yesterday morning but has mostly just slept since then. Taking very little by mouth. Nursing has not attempted to wean his NTG drip Exam Vital signs and Labs for Last 24 Hours: Temp Pulse Resp BP Pulse Ox 98.2 F 87 22 183/89 95 03/02/17 16:00 03/02/17 16:58 03/02/17 16:58 03/02/17 16:58 03/02/17 16:58 Laboratory Results - last 24 hr 02/28/17 12:07: POC Glucose 313 02/28/17 17:07: POC Glucose 315 03/01/17 12:38: POC Glucose 235 03/01/17 17:23: POC Glucose 284 03/01/17 19:44: POC Glucose 294 03/02/17 04:20: Stl Aeromonas (PCR) Not detected, Stl C. cayetanensis PCR Not detected, Stool Rotavirus (PCR) Not detected, Stl Adenov F 40/41 PCR Not detected, Stool Astrovirus (PCR) Not detected, Stool Cryptosporidium PCR Not detected, Stl E.coli Shiga Tox PCR Not detected, Stool E coli O157 PCR Not detected, Stl Enterotoxigenic E PCR Not detected, Stool EPEC (PCR) Not detected, Stool EAEC (PCR) Not detected, Stl E. histolytica PCR Not detected, Stool Giardia Lamblia PCR Not detected, Stool Sapovirus (PCR) Not detected, Stl P. shigelloides PCR Not detected, Stl Shigella/EIEC PCR Not detected, St Y.enterocolitica PCR Not detected, Stool Vibrio (PCR) Not detected, Stl Vibrio cholerae PCR Not detected, Stl Norovirus GI/GII PCR Not detected, Campylobacter (PCR) Not detected, C. difficile (PCR) Not detected, Salmonella (PCR) Not detected 03/02/17 05:15: WBC 9.3, RBC 2.84 L, Hgb 8.1 L, Hct 25.9 L, MCV 91.1, MCH 28.5, MCHC 31.3 L, RDW 13.2, Plt Count 273, MPV 7.7, Neut % (Auto) 85.1 H, Lymph % (Auto) 7.2 L, [place] % (Auto) 6.5, Eos % (Auto) 1.0, Baso % (Auto) 0.2, Neut # (Auto) 7.9 H, Lymph # (Auto) 0.7, [place] # (Auto) 0.6, Eos # (Auto) 0.1, Baso # (Auto) 0.0, Total Counted 100, Neutrophils % (Manual) 92 H, Lymphocytes % (Manual) 3 L, Atypical Lymphs % 1.0, Monocytes % (Manual) 2, Eosinophils % (Manual) 2, Platelet Estimate Normal, RBC Morphology Normal 03/02/17 05:15: Sodium 140, Potassium 3.6, Chloride 105, Carbon Dioxide 28, Anion Gap 10.6, BUN 46 H, Creatinine 2.22 H, Estimated Creat Clear 31, Estimated GFR 29 L, Est GFR ( Amer) 35 L, Glucose 238 H 03/02/17 06:09: POC Glucose 280 03/02/17 11:54: POC Glucose 219 03/02/17 16:48: POC Glucose 199 I & O for Last 24 hours: Intake & Output 02/28/17 03/01/17 03/02/17 03/03/17 11:59 11:59 11:59 11:59 Intake Total 831.283 / 831.283 835.95 / 835.95 1584 / 1584 725 / 725 Balance 831.283 / 831.283 835.95 / 835.95 1584 / 1584 725 / 725 - Constitutional Comments: asleep, no resp distress - *Routine Respiratory Exam Present: CTA bilaterally - *Routine Cardiovascular Exam Present: RRR - *Routine Extremities Exam Absent: edema Assessment and Plan (1) Malignant essential hypertension Current visit: No Status: Acute Category: Medical Code(s): I10 - Essential (primary) hypertension (2) Hypertensive encephalopathy Current visit: Yes Status: Acute Category: Medical Code(s): I67.4 - Hypertensive encephalopathy (3) HHD (hypertensive heart disease) Current visit: No Status: Chronic Category: Medical Code(s): I11.9 - Hypertensive heart disease without heart failure (4) Osteomyelitis Current visit: Yes Status: Acute Category: Medical Code(s): M86.9 - Osteomyelitis, unspecified (5) ASCVD (arteriosclerotic cardiovascular disease) Current visit: Yes Status: Chronic Category: Medical Code(s): I25.10 - Atherosclerotic heart disease of [place] coronary artery without angina pectoris (6) Diabetes mellitus Current visit: Yes Status: Chronic Category: Medical Code(s): E11.9 - Type 2 diabetes mellitus without complications (7) PVD (peripheral vascular disease) Current visit: Yes Status: Chronic Category: Medical Code(s): I73.9 - Peripheral vascular disease, unspecified
--- NOTE | 2017-03-02 17:17 | P.PN_ITS ---
Internal Medicine - PN: Subj *Date: 03/02/17 *Time: 07:50 Interval history: Pateint and examined this AM. at bedside and notes he had a pretty good morning yesterday morning but has mostly just slept since then. Taking very little by mouth. Nursing has not attempted to wean his NTG drip Exam Vital signs and Labs for Last 24 Hours: Temp Pulse Resp BP Pulse Ox 98.2 F 87 22 183/89 95 03/02/17 16:00 03/02/17 16:58 03/02/17 16:58 03/02/17 16:58 03/02/17 16:58 Laboratory Results - last 24 hr 02/28/17 12:07: POC Glucose 313 02/28/17 17:07: POC Glucose 315 03/01/17 12:38: POC Glucose 235 03/01/17 17:23: POC Glucose 284 03/01/17 19:44: POC Glucose 294 03/02/17 04:20: Stl Aeromonas (PCR) Not detected, Stl C. cayetanensis PCR Not detected, Stool Rotavirus (PCR) Not detected, Stl Adenov F 40/41 PCR Not detected, Stool Astrovirus (PCR) Not detected, Stool Cryptosporidium PCR Not detected, Stl E.coli Shiga Tox PCR Not detected, Stool E coli O157 PCR Not detected, Stl Enterotoxigenic E PCR Not detected, Stool EPEC (PCR) Not detected , Stool EAEC (PCR) Not detected, Stl E. histolytica PCR Not detected, Stool Giardia Lamblia PCR Not detected, Stool Sapovirus (PCR) Not detected, Stl P. shigelloides PCR Not detected, Stl Shigella/EIEC PCR Not detected, St Y.enterocolitica PCR Not detected, Stool Vibrio (PCR) Not detected, Stl Vibrio cholerae PCR Not detected, Stl Norovirus GI/GII PCR Not detected, Campylobacter (PCR) Not detected, C. difficile (PCR) Not detected, Salmonella (PCR) Not detected 03/02/17 05:15: WBC 9.3, RBC 2.84 L, Hgb 8.1 L, Hct 25.9 L, MCV 91.1, MCH 28.5, MCHC 31.3 L, RDW 13.2, Plt Count 273, MPV 7.7, Neut % (Auto) 85.1 H, Lymph % ( Auto) 7.2 L, [place] % (Auto) 6.5, Eos % (Auto) 1.0, Baso % (Auto) 0.2, Neut # ( Auto) 7.9 H, Lymph # (Auto) 0.7, [place] # (Auto) 0.6, Eos # (Auto) 0.1, Baso # ( Auto) 0.0, Total Counted 100, Neutrophils % (Manual) 92 H, Lymphocytes % (Manual ) 3 L, Atypical Lymphs % 1.0, Monocytes % (Manual) 2, Eosinophils % (Manual) 2, Platelet Estimate Normal, RBC Morphology Normal 03/02/17 05:15: Sodium 140, Potassium 3.6, Chloride 105, Carbon Dioxide 28, Anion Gap 10.6, BUN 46 H, Creatinine 2.22 H, Estimated Creat Clear 31, Estimated GFR 29 L, Est GFR ( Amer) 35 L, Glucose 238 H 03/02/17 06:09: POC Glucose 280 03/02/17 11:54: POC Glucose 219 03/02/17 16:48: POC Glucose 199 I & O for Last 24 hours: Intake & Output 02/28/17 03/01/17 03/02/17 03/03/17 11:59 11:59 11:59 11:59 Intake Total 831.283 / 831.283 835.95 / 835.95 1584 / 1584 725 / 725 Balance 831.283 / 831.283 835.95 / 835.95 1584 / 1584 725 / 725 - Constitutional Comments: asleep, no resp distress - *Routine Respiratory Exam Present: CTA bilaterally - *Routine Cardiovascular Exam Present: RRR - *Routine Extremities Exam Absent: edema Assessment and Plan (1) Malignant essential hypertension Current visit: No Status: Acute Category: Medical Code(s): I10 - Essential (primary) hypertension (2) Hypertensive encephalopathy Current visit: Yes Status: Acute Category: Medical Code(s): I67.4 - Hypertensive encephalopathy (3) HHD (hypertensive heart disease) Current visit: No Status: Chronic Category: Medical Code(s): I11.9 - Hypertensive heart disease without heart failure (4) Osteomyelitis Current visit: Yes Status: Acute Category: Medical Code(s): M86.9 - Osteomyelitis, unspecified (5) ASCVD (arteriosclerotic cardiovascular disease) Current visit: Yes Status:
--- NOTE | 2017-03-02 18:06 | DIET.NUTRFU ---
at bedside reports pt was eating on admission for a couple days. He has had little to no po intake over the past 4 days. 6 day hospital stay. Diet is soft, nursing reports they can get him to take a couple sips water is all. Pt is not alert enough for po intake. Recommend enteral nutrition support until pt condition improves. Inadequate nutrition intake. elevated blood sugars. Htn urgency. Educated on Glucerna supplements if pt becomes awake. Nursing report they have already tried Glucerna without success.
[2017-03-02 22:13] LABS: POC Glucose,Bedside 192 mg/dL
[2017-03-03] VITALS (25 sets, daily range): BP systolic 106–199; BP diastolic 55–102; PULSE 70–95; RESP 17–20; TEMP 36.4–37.9; O2SAT 92–98
--- NOTE | 2017-03-03 04:20 | PC.NURSE ---
PT IS ALERT TO SELF WITH CONFUSION. HE HAS BEEN DROWSY T/O THE SHIFT. HE HAD YELLOW, DRIED DRAINAGE ON HIS RIGHT EYE. HE DID SMILE WHEN ASKED. HIS FACE WAS SYMMETRICAL. NOTED DIFFICULTY SWALLOWING. LUNG DIMINISHED. NORMAL BOWEL SOUNDS. HE IS INCONTINENT OF URINE. REAGAN-CARE PROVIDED PER STAFF. HE TOOK HIS NIGHT MEDICATIONS CRUSHED IN APPLESAUCE. ELEVATED BP T/O THE NIGHT. HAD TO TITRATE NITRO FOR RATE CONTROL. HE IS BEING TURNED AND REPOSITIONED Q 2 HOURS. PT'S REPORTED A DIABETIC ULCER ON HIS LLE. ABRASION NOTED ON 2ND DIGIT ON RLE.
[2017-03-03 06:03] LABS: POC Glucose,Bedside 245 mg/dL
[2017-03-03 06:11] LABS: Basophils % 0.2 % (0.1-2.0); Eosinophils # 0.1 K/mm3 (0.0-0.4); Eosinophils % 0.8 % (0.1-12.0); Hematocrit 26.2 % (42.0-52.0); Hemoglobin 8.5 g/dL (14.1-18.0); Lymphocytes # 0.5 K/mm3 (0.7-4.5); Lymphocytes % 6.8 K/mm3 (10-50); Mean Corpuscular HGB Conc 32.3 g/dL (31.8-35.4); Mean Corpuscular Hemoglobin 28.7 pg (27.0-31.2); Mean Corpuscular Volume 88.9 fl (80-94); Mean Platelet Volume 8.4 fl (7.4-10.4); Monocytes # 0.4 K/mm3 (0.1-1.0); Monocytes % 5.3 % (1.7-9.3); Neutrophils # 6.6 K/mm3 (1.8-7.8); Platelet Count 287 K/mm3 (142-424); Red Blood Count 2.94 M/mm3 (4.60-6.20); Red Cell Distribution Width 13.1 % (11.5-17.5); White Blood Count 7.6 K/mm3 (4.8-10.8)
[2017-03-03 06:13] LABS: Anion Gap 14.9 mEq/L (5-15); Blood Urea Nitrogen 45 mg/dL (7-18); Carbon Dioxide 27 mmol/L (21.0-32.0); Chloride 109 mmol/L (98-107); Creatinine Clearance Estimated 35 mL/min (0-300); Creatinine,Serum 1.92 mg/dL (0.70-1.30); Estimated Glomerular Filt Rate 34 ml/min (>60); GFR (African American) 41 ML/MIN (>60); Glucose 216 mg/dL (74-106); Potassium 3.9 mmoL/L (3.5-5.1); Sodium 147 mmol/L (136-145)
[2017-03-03 06:14] LABS: MANUAL DIFFERENTIAL MANUAL DIFFERENTIAL (MANUAL DIFF)
--- NOTE | 2017-03-03 06:33 | PC.NURSE ---
THE NITRO GTT HAS BEEN TITRATED BACK DOWN TO THE LOWEST DOSE (3ML/HR; 10MCG/MIN). HIS BP IS WITHIN NORMAL LIMITS.
--- NOTE | 2017-03-03 08:40 | CT_ITS ---
CT head/brain wo con HISTORY: Altered mental status, altered level of consciousness, confusion ITS.REASON: altered mental status ORDERING PHYSICIAN: Taco Baum MD PATIENT AGE: 81 years COMPARISON: None TECHNIQUE: Axial images obtained without contrast. Brain and bone windows reviewed. FINDINGS: There is generalized atrophy with periventricular ischemic gliotic change. No midline shift, mass effect, intracranial hemorrhage, or hydrocephalus. IMPRESSION: 1. No acute finding. 2. Atrophy with chronic ischemic gliotic change
--- NOTE | 2017-03-03 09:03 | HMH.ACPN ---
Internal Medicine - PN: Subj *Date: 03/03/17 *Time: 19:08 Interval history: low grade fever; per : response is about the same; sleeping most of the time; did call Dr. Baum by name; no breathing difficulties; remains on NTG gtt; sometimes pt has been too sleepy to swallow pills; SPT therapy saw pt this AM and made him NPO for now-see note Exam Vital signs and Labs for Last 24 Hours: Temp Pulse Resp BP Pulse Ox 100.2 F H 80 18 106/60 94 L 03/03/17 05:00 03/03/17 06:35 03/03/17 06:16 03/03/17 06:35 03/03/17 06:35 Laboratory Results - last 24 hr 03/02/17 05:15: Total Counted 100, Neutrophils % (Manual) 92 H, Lymphocytes % (Manual) 3 L, Atypical Lymphs % 1.0, Monocytes % (Manual) 2, Eosinophils % (Manual) 2, Platelet Estimate Normal, RBC Morphology Normal 03/02/17 11:54: POC Glucose 219 03/02/17 16:48: POC Glucose 199 03/02/17 20:04: POC Glucose 192 03/03/17 05:50: WBC 7.6, RBC 2.94 L, Hgb 8.5 L, Hct 26.2 L, MCV 88.9, MCH 28.7, MCHC 32.3, RDW 13.1, Plt Count 287, MPV 8.4, Neut % (Auto) 87.0 H, Lymph % (Auto) 6.8 L, [place] % (Auto) 5.3, Eos % (Auto) 0.8, Baso % (Auto) 0.2, Neut # (Auto) 6.6, Lymph # (Auto) 0.5 L, [place] # (Auto) 0.4, Eos # (Auto) 0.1, Baso # (Auto) 0.0 03/03/17 05:50: Sodium 147 H, Potassium 3.9, Chloride 109 H, Carbon Dioxide 27, Anion Gap 14.9, BUN 45 H, Creatinine 1.92 H, Estimated Creat Clear 35, Estimated GFR 34 L, Est GFR ( Amer) 41 L, Glucose 216 H 03/03/17 05:55: POC Glucose 245 I & O for Last 24 hours: Intake & Output 02/28/17 03/01/17 03/02/17 03/03/17 11:59 11:59 11:59 11:59 Intake Total 831.283 / 831.283 835.95 / 835.95 1584 / 1584 1460 / 1460 Balance 831.283 / 831.283 835.95 / 835.95 1584 / 1584 1460 / 1460 - Constitutional no acute distress Comments: opens eyes to command; knew Dr. Baum - *Routine Respiratory Exam Present: CTA bilaterally - *Routine Cardiovascular Exam Present: RRR - *Routine Abdominal Exam Present: soft, normoactive bowel sounds. Absent: tenderness, distended, guarding - *Routine Extremities Exam Absent: edema - *Routine Neurological Exam Present: facial asymmetry Assessment and Plan (1) Malignant essential hypertension Current visit: No Status: Acute Category: Medical Code(s): I10 - Essential (primary) hypertension (2) Hypertensive encephalopathy Current visit: Yes Status: Acute Category: Medical Code(s): I67.4 - Hypertensive encephalopathy (3) ASCVD (arteriosclerotic cardiovascular disease) Current visit: Yes Status: Chronic Category: Medical Code(s): I25.10 - Atherosclerotic heart disease of [place] coronary artery without angina pectoris (4) Diabetes mellitus Current visit: Yes Status: Chronic Category: Medical Code(s): E11.9 - Type 2 diabetes mellitus without complications (5) PVD (peripheral vascular disease) Current visit: Yes Status: Chronic Category: Medical Code(s): I73.9 - Peripheral vascular disease, unspecified (6) Prostate cancer Current visit: Yes Status: Chronic Category: Medical Code(s): C61 - Malignant neoplasm of prostate (7) Osteomyelitis Current visit: Yes Status: Acute Category: Medical Code(s): M86.9 - Osteomyelitis, unspecified (8) HHD (hypertensive heart disease) Current visit: No Status: Chronic Category: Medical Code(s): I11.9 - Hypertensive heart disease without heart failure - Assessment and plan all Dx Assessment and Plan for all problems:: NTG gtt and BP/cardiac meds as per cardiology; CT of the head today I spoke with Chris Man today and he is going to have Dr. Bhatia personally see patient today for further recommendations on his BP. Due to persistence of his AMS, will proceed with CT of head (w/o contrast due to renal function)
--- NOTE | 2017-03-03 11:41 | HMH.SLDYSPHA ---
Speech & Language Evaluation Speech/Language Dysphagia Evaluation Start: 03/03/17 08:47 Freq: ONCE Status: Active Protocol: Document 03/03/17 11:30 DEMAR (Rec: 03/03/17 11:41 DEMAR [id number]) Dysphagia Assess/Goals/Plan Assessment Date of Evaluation: 03/03/17 Evaluation Type Initial Certification Assessment/Problems Determine least restrictive diet. Pocketing food Does Patient Qualify for Service Yes Qualify/Failure Comment Patient pockets food, anterior loss of liquids Recommendations PHYSICIAN CERTIFICATION: The specified therapy services are required, authorized, and reviewed every 30 days. Pt will be seen # times/week 3 for # weeks 1 Diet Recommendations Dysphagia Pureed Liquid Type Recommendations Honey Consistency SL Swallow Guidelines Chk mough for pocketing Crush Meds Crush all meds Dysphagia Swallow Precautions/Strategies Sitting Upright (90 deg) No Straw Liquids from Spoon Place Food on Left side of Mouth Plan Anticipate reaching STG in # weeks 1 Anticipate reaching LTG in # weeks 1 Pt/Guardian verbally ack understanding Yes: of dx/prognosis/goals G -code Required Yes G-CODES ST Current Status [id number] ST Current Status Modifier CL-At least 60% but less than 80% impaired, limited or restricted ST Goal Status [id number] ST Goal Status Modifier CI-At least 1% but less than 20% impaired, limited or restricted STG-Ant Loss/Jaw Closure Eliminate loss of food/liq out of mouth 3 w/jaw support in # trials Pt will take only this type liquid w/wo Honey Thick cues in # trials 3 [facility] Goals Diet Pureed with Liquids Honey Thick Pt will be able to eat foods w/more Yes normal consistency Education Instructions provided Present liquids via spoon only , only present foods when alert, check for pocketing. Pt/Caregiver able to recall information Able to recall/restate Speech & Language HPI Language Primary Language [place] General Information General Current Food Consistancy Pureed Honey Liquids Denture Type Full- Upper & Lower Facial Symmetry Asymmetrical Patient Orientation Person Time Ability to Follow Directions Fair Oral Expression A
[2017-03-03 12:19] LABS: Lymphocytes % 4 % (10-50); Monocytes % 6 % (2-9); Neutrophils % 90 % (42-76); Total Cells Counted 100
[2017-03-03 12:20] LABS: Platelet Estimate Normal; RBC Morphology Normal
--- NOTE | 2017-03-03 14:10 | SW/DCPLANNER ---
Spoke with regarding discharge plans. stated this is something she has been thinking about but would still need to have discussion with daughters and see how patient does once able to participate with therapy. After discussion with patients regarding the possibility of short term rehab once ready for discharge, has stated that she would only be willing for patient to discharge to [facility]. I explained how competitive admission can be at [facility] and has agreed for me to fax patient information now to see if a bed is available. has asked that she can speak with her daughters before Hallie comes to see patient. Patient information has been faxed to [facility] and Hallie is aware of situation. I will follow up with patient and patients family tomorrow.
--- NOTE | 2017-03-03 19:30 | PC.NURSE ---
PATIENT HAS NITRO DRIP INFUSING AT THIS TIME AT 3 ML/HR (10 MCG/MIN). WILL CONTINUE TO MONITOR.
--- NOTE | 2017-03-03 23:44 | PC.NURSE ---
BLOOD PRESSURE HAS BEEN CONSISTANTLY ELEVATED WITHIN PAST HOUR. 2244 BLOOD PRESSURE 163/93. NITRO DRIP INCREASED TO 6 MG/HR (20 MCG/MIN) AT THIS TIME. WILL CONTINUE TO MONITOR.
[2017-03-04] VITALS (19 sets, daily range): BP systolic 93–180; BP diastolic 51–89; PULSE 60–91; RESP 13–22; TEMP 36.6–38.3; O2SAT 90–98
--- NOTE | 2017-03-04 01:15 | PC.NURSE ---
PATIENT'S BLOOD PRESSURE CONTINUES TO BE CONSISTANTLY ELEVATED. CURRENT BLOOD PRESSURE IS 180/80. NITRO DRIP INCREASED TO 9 ML/HR (30 MCG/MIN) AT THIS TIME. WILL CONTINUE TO MONITOR.
[2017-03-04 01:56] LABS: POC Glucose,Bedside 191 mg/dL
[2017-03-04 01:56] LABS: POC Glucose,Bedside 210 mg/dL
[2017-03-04 01:57] LABS: POC Glucose,Bedside 164 mg/dL
--- NOTE | 2017-03-04 05:24 | PC.NURSE ---
PATIENT CURRENTLY RESTING WITH EYES CLOSED AT THIS TIME. NITROGLYCERIN DRIP CONTINUES. DRIP STARTED OUT AT 3 ML/HR (10 MCG/MIN) AND HAS BEEN TITRATED X2 AND IS CURRENTLY INFUSING AT 9 ML/HR (30 MCG/MIN). BLOOD PRESSURE AT THIS TIME IS 156/78. PATIENT HAS SLEPT ON AND OFF THIS SHIFT. C/O PAIN TO BLE X1 AND RECEIVED PRN TYLENOL, WHICH WAS EFFECTIVE. NO OTHER PROBLEMS NOTED. VSS. WILL CONTINUE TO MONITOR. SAFETY MEASURES IN PLACE, CALL LIGHT IN REACH.
[2017-03-04 06:39] LABS: POC Glucose,Bedside 221 mg/dL
--- NOTE | 2017-03-04 08:08 | P.PN_ITS ---
Internal Medicine - PN: Subj *Date: 03/04/17 *Time: 11:09 Interval history: Pt much more alert this am; no breathing difficulties; remains on NTG gtt; Pt's states he had a better night. Exam Vital signs and Labs for Last 24 Hours: Temp Pulse Resp BP Pulse Ox 98.9 F 70 20 154/77 97 03/04/17 05:21 03/04/17 06:00 03/04/17 06:00 03/04/17 06:00 03/04/17 06:00 Laboratory Results - last 24 hr 03/03/17 05:50: Total Counted 100, Neutrophils % (Manual) 90 H, Lymphocytes % ( Manual) 4 L, Monocytes % (Manual) 6, Platelet Estimate Normal, RBC Morphology Normal 03/03/17 11:39: POC Glucose 191 03/03/17 16:24: POC Glucose 210 03/03/17 20:12: POC Glucose 164 03/04/17 06:24: POC Glucose 221 I & O for Last 24 hours: Intake & Output 03/01/17 03/02/17 03/03/17 03/04/17 11:59 11:59 11:59 11:59 Intake Total 1085.95 / 1085.95 1584 / 1584 1460 / 1460 2166.275 / 2166.275 Output Total 0 / 0 Balance 1085.95 / 1085.95 1584 / 1584 1460 / 1460 2166.275 / 2166.275 - Constitutional no acute distress (Will answer questions this am) - *Routine Respiratory Exam Present: CTA bilaterally - *Routine Cardiovascular Exam Present: RRR - *Routine Abdominal Exam Present: soft, normoactive bowel sounds. Absent: tenderness - *Routine Extremities Exam Absent: edema Assessment and Plan (1) Hypertensive encephalopathy Current visit: Yes Status: Acute Category: Medical Code(s): I67.4 - Hypertensive encephalopathy (2) HHD (hypertensive heart disease) Current visit: No Status: Chronic Category: Medical Code(s): I11.9 - Hypertensive heart disease without heart failure (3) Osteomyelitis Current visit: Yes Status: Acute Category: Medical Code(s): M86.9 - Osteomyelitis, unspecified (4) ASCVD (arteriosclerotic cardiovascular disease) Current visit: Yes Status: Chronic Category: Medical Code(s): I25.10 - Atherosclerotic heart disease of [place] coronary artery without angina pectoris (5) Diabetes mellitus Current visit: Yes Status: Chronic Category: Medical Code(s): E11.9 - Type 2 diabetes mellitus without complications (6) PVD (peripheral vascular disease) Current visit: Yes Status: Chronic Category: Medical Code(s): I73.9 - Peripheral vascular disease, unspecified (7) Prostate cancer Current visit: Yes Status: Chronic Category: Medical Code(s): C61 - Malignant neoplasm of prostate (8) CRF (chronic renal failure) Current visit: Yes Status: Acute Category: Medical Code(s): N18.9 - Chronic kidney disease, unspecified - Assessment and plan all Dx Assessment and Plan for all problems:: Cardiology still working on weaning nitro drip. Will defer to cardiology. Mental status has improved. He is having longer periods of alertness. Seems fairly oriented and appropriate. He wants to get OOB. With his significant hx of OA, he will likely be very stiff and weak due to prolonged inactivity. Will get PT eval today. Cardiology notes and plans reviewed.
--- NOTE | 2017-03-04 09:25 | HMH.CARDPN2 ---
Subjective PN (PG) Date: 03/04/17 Time: 09:25 Principal diagnosis: Hypertensive urgency Interval history: Pt much more alert this am; no breathing difficulties; remains on NTG gtt; Pt's states he had a better night. Not back to baseline per . Pt denies any chest pain. PN Exam ([facility] Owned) Vital signs: Temp Pulse Resp BP Pulse Ox 98.9 F 80 20 154/77 97 03/04/17 05:21 03/04/17 08:00 03/04/17 06:00 03/04/17 06:00 03/04/17 06:00 - Routine Respiratory Exam Present: CTA bilaterally - Routine Cardiovascular Exam Present: RRR, irregularly irregular - Routine Extremities Exam Absent: edema - Urinary Catheter Management Serrato Cath placed during this visit: no A/P Progress Note ([facility] Owned) (1) Asymptomatic hypertensive urgency Status: Acute Assessment and plan: Still on NTG gtt. Will add norvasc to try and discontinue NTG gtt. BP is improved but not to goal. Current Visit: Yes (2) Osteomyelitis Status: Acute Current Visit: Yes (3) ASCVD (arteriosclerotic cardiovascular disease) Status: Chronic Current Visit: Yes (4) Diabetes mellitus Status: Chronic Current Visit: Yes (5) PVD (peripheral vascular disease) Status: Chronic Current Visit: Yes (6) HHD (hypertensive heart disease) Status: Chronic Current Visit: No (7) CRF (chronic renal failure) Status: Acute Current Visit: Yes
--- NOTE | 2017-03-04 09:29 | P.PN_ITS ---
Subjective PN (PG) Date: 03/04/17 Time: 09:25 Principal diagnosis: Hypertensive urgency Interval history: Pt much more alert this am; no breathing difficulties; remains on NTG gtt; Pt's states he had a better night. Not back to baseline per . Pt denies any chest pain. PN Exam ([facility] Owned) Vital signs: Temp Pulse Resp BP Pulse Ox 98.9 F 80 20 154/77 97 03/04/17 05:21 03/04/17 08:00 03/04/17 06:00 03/04/17 06:00 03/04/17 06:00 - Routine Respiratory Exam Present: CTA bilaterally - Routine Cardiovascular Exam Present: RRR, irregularly irregular - Routine Extremities Exam Absent: edema - Urinary Catheter Management Serrato Cath placed during this visit: no A/P Progress Note ([facility] Owned) (1) Asymptomatic hypertensive urgency Status: Acute Assessment and plan: Still on NTG gtt. Will add norvasc to try and discontinue NTG gtt. BP is improved but not to goal. Current Visit: Yes (2) Osteomyelitis Status: Acute Current Visit: Yes (3) ASCVD (arteriosclerotic cardiovascular disease) Status: Chronic Current Visit: Yes (4) Diabetes mellitus Status: Chronic Current Visit: Yes (5) PVD (peripheral vascular disease) Status: Chronic Current Visit: Yes (6) HHD (hypertensive heart disease) Status: Chronic Current Visit: No (7) CRF (chronic renal failure) Status: Acute Current Visit: Yes
--- NOTE | 2017-03-04 11:11 | HMH.PTEV ---
Physical Therapy Evaluation Rehab PT IP Evaluation Start: 03/04/17 10:02 Freq: ONCE Status: Active Protocol: Document 03/04/17 11:01 PHORASHLY (Rec: 03/04/17 11:11 PHORNE [id number]) Subjective/History History History 81 yom adm to [facility] with acute hypertensive emergency. Has been followed for wound care since admission and no is appropriate for mobility. Subjective Subjective Pt reports feeling better today and wants to get up to the chair. Rehab PT IP Eval Objective Appearance Patient Behavior Appropriate Patient Orientation Person Place Time Difficulty following instructions none Speech Pattern Clear Ambulation Patient Able to Ambulate No Balance Ability to Arise Unable Sitting Balance Leans or slides in chair Standing Balance Unsteady Dynamic Sitting Balance Ability Fair Dynamic Standing Balance Ability Zero Transfers Bed Transfer Ability Moderate x 1 (50% assist) Chair Transfer Ability Total/Dependent (100%) Sit to Stand Bed Transfer Ability Total/Dependent (100%) Sit to Stand Chair Transfer Ability Total/Dependent (100%) MMT LLE Abnormal MMT Grade grossly 2/5 RLE Abnormal MMT Grade grossly 2/5 Rehab PT IP prob,goals,plan Problems Date of Evaluation: 03/04/17 PT IP Problems Bed Mobility Transfers Gait Rehab Potential Rehab Potential Fair Equipment Needs Assistive Devices Rolling / Wheeled Walker Plan PT Intervention Plan Bed Mobility Transfers Gait Therapeutic Exercise PT Plan Frequency BID Duration LOS Discharge Goals Bed Transfer Ability Maximum x 1 (75% assist) Sit to Stand Chair Transfer Ability Maximum x 1 (75% assist) Discharge Plan PT Discharge Plan Pt is most appropriate for rehab placement at this time. G -code Required Yes Eval Complexity Eval Charge Codes 76173 - High Complexity G Codes PT Current Status Mobility PT Current Status Modifier CL-At least 60% but less than 80% impaired, limited or restricted PT Goal Status Mobility PT Goal Status Modifer CL-At least 60% but
--- NOTE | 2017-03-04 11:19 | PC.NURSE ---
NITRO DRIP STOPPED, PT STABLE AT THIS TIME. BP DECREASED TO 93/51 BUT HAS SINCE BEEN 164/87. PT IS IN CHAIR AND TOLERATING WELL AT THIS TIME. WILL CONSIDER TRANSFER TO ACUTE BED PER MD IF PT REMAINS STABLE WITH DC OF NITRO DRIP
--- NOTE | 2017-03-04 14:51 | SW/DCPLANNER ---
Spoke with patients this afternoon. stated that patient was not able to participate with therapy very well...they moved him to the chair. is still agreeable to plan of discharging to [place] if a bed is available once that time comes. I will follow up with patient and family tomorrow. Discharge date is unknown at this time.
--- NOTE | 2017-03-04 16:14 | DIET.NUTRFU ---
Pt has slowly become more alert and able to take a few sips liquids and bites of food. Today at lunch he ate some green beans. He does not like the Glucerna supplements. reports he does not like milk type products. Shine Worker has evaluated pt and upgraded his diet to [facility] soft ground with nectar thick liquids. He requires full assist with meals. Blood sugars elevated with little po intakes, fsbs 245,191,210,164,221. No diabetic restrictions at this time. Will try alternative nutrition supplements: cottage cheese, chix salad, pimiento cheese. Pt prefers cold drinks and will send diet pepsi's that are thickened. Pt continues to be unable to meet nutritional needs. Will monitor for any improvements in Po intakes and acceptances to added dietary supplements.
[2017-03-04 20:32] LABS: POC Glucose,Bedside 212 mg/dL
[2017-03-04 20:32] LABS: POC Glucose,Bedside 207 mg/dL
[2017-03-04 22:22] LABS: POC Glucose,Bedside 165 mg/dL
[2017-03-05] VITALS (10 sets, daily range): BP systolic 140–187; BP diastolic 68–88; PULSE 70–88; RESP 16–29; TEMP 36.3–37.6; O2SAT 94–99
--- NOTE | 2017-03-05 04:50 | PC.NURSE ---
PATIENT HAS SLEPT ON AND OFF THIS SHIFT. PATIENT'S ORAL FLUIDS WERE CHANGED YESTERDAY FROM HONEY THICK TO NECTAR THICK; PATIENT HAS BEEN COUGHING MORE THIS SHIFT SINCE THAT CHANGE; COUGH IN NON-PRODUCTIVE, HOWEVER DOES SOUND WET/CONGESTED. NO DISTRESS HAS BEEN NOTED. PER FAMILY, PATIENT DID HAVE ONE EPISODE WHERE HE WAS AGITATED AND TRYING TO GET OUT OF BED. NURSING STAFF WAS NOT MADE AWARE OF THAT TILL AFTER THE FACT. PATIENT IS CURRENTLY RESTING QUIETLY IN BED. NO OTHER PROBLEMS NOTED AT THIS TIME. VSS. WILL CONTINUE TO MONITOR. SAFETY MEASURES IN PLACE, CALL LIGHT IN REACH.
[2017-03-05 06:39] LABS: POC Glucose,Bedside 202 mg/dL
[2017-03-05 07:34] LABS: Anion Gap 9.3 mEq/L (5-15); Blood Urea Nitrogen 44 mg/dL (7-18); Carbon Dioxide 28 mmol/L (21.0-32.0); Chloride 114 mmol/L (98-107); Creatinine Clearance Estimated 40 mL/min (0-300); Creatinine,Serum 1.72 mg/dL (0.70-1.30); Estimated Glomerular Filt Rate 39 ml/min (>60); GFR (African American) 47 ML/MIN (>60); Glucose 189 mg/dL (74-106); Potassium 3.3 mmoL/L (3.5-5.1); Sodium 148 mmol/L (136-145)
--- NOTE | 2017-03-05 08:13 | XR_ITS ---
XR chest portable HISTORY: ITS.REASON: congested cough, r/o aspiration ORDERING PHYSICIAN: Taco Baum MD PATIENT AGE: 81 years COMPARISON: 03/01/2017 FINDINGS: Prior median sternotomy with borderline cardiomegaly. No evidence of CHF.. The lungs are clear without infiltrates, suspicious nodules, or pleural effusions. The right hemidiaphragm is elevated as before. No acute bony abnormalities. IMPRESSION: No change with no acute finding. Mild cardiomegaly
--- NOTE | 2017-03-05 08:56 | HMH.ACPN ---
Internal Medicine - PN: Subj *Date: 03/05/17 *Time: 18:48 Interval history: Patient's states he did not have a good night. He was awake most of the night. He has been coughing. He denies any pain and he is eating breakfast this morning. Exam Vital signs and Labs for Last 24 Hours: Temp Pulse Resp BP Pulse Ox 99.7 F H 78 21 160/82 97 03/05/17 04:30 03/05/17 04:30 03/05/17 04:30 03/05/17 04:30 03/05/17 04:30 Laboratory Results - last 24 hr 03/04/17 11:44: POC Glucose 212 03/04/17 17:14: POC Glucose 207 03/04/17 21:50: POC Glucose 165 03/05/17 06:04: POC Glucose 202 03/05/17 06:45: Sodium 148 H, Potassium 3.3 L, Chloride 114 H, Carbon Dioxide 28, Anion Gap 9.3, BUN 44 H, Creatinine 1.72 H, Estimated Creat Clear 40, Estimated GFR 39 L, Est GFR ( Amer) 47 L, Glucose 189 H I & O for Last 24 hours: Intake & Output 03/02/17 03/03/17 03/04/17 03/05/17 11:59 11:59 11:59 11:59 Intake Total 1584 / 1584 1460 / 1460 2226.275 / 2226.275 1811 / 1811 Output Total 0 / 0 0 / 0 Balance 1584 / 1584 1460 / 1460 2226.275 / 2226.275 181 / 181 - Constitutional no acute distress - *Routine Respiratory Exam Present: decreased breath sounds - *Routine Cardiovascular Exam Present: RRR - *Routine Abdominal Exam Present: soft, normoactive bowel sounds. Absent: tenderness - *Routine Extremities Exam Absent: edema Assessment and Plan (1) Malignant essential hypertension Current visit: No Status: Acute Category: Medical Code(s): I10 - Essential (primary) hypertension (2) Hypertensive encephalopathy Current visit: Yes Status: Acute Category: Medical Code(s): I67.4 - Hypertensive encephalopathy (3) HHD (hypertensive heart disease) Current visit: No Status: Chronic Category: Medical Code(s): I11.9 - Hypertensive heart disease without heart failure (4) Osteomyelitis Current visit: Yes Status: Acute Category: Medical Code(s): M86.9 - Osteomyelitis, unspecified (5) ASCVD (arteriosclerotic cardiovascular disease) Current visit: Yes Status: Chronic Category: Medical Code(s): I25.10 - Atherosclerotic heart disease of [place] coronary artery without angina pectoris (6) Diabetes mellitus Current visit: Yes Status: Chronic Category: Medical Code(s): E11.9 - Type 2 diabetes mellitus without complications (7) PVD (peripheral vascular disease) Current visit: Yes Status: Chronic Category: Medical Code(s): I73.9 - Peripheral vascular disease, unspecified (8) Prostate cancer Current visit: Yes Status: Chronic Category: Medical Code(s): C61 - Malignant neoplasm of prostate - Assessment and plan all Dx Assessment and Plan for all problems:: He is now off the nitro drip. Cardiology is managing his blood pressure. We will get a chest x-ray today due to new symptom of cough. Did not sleep well primarily due to his cough. He is eating better this AM. Proceed with CXR. Continue PT.
--- NOTE | 2017-03-05 08:57 | HMH.CARDPN2 ---
Subjective PN (PG) Date: 03/05/17 Time: 08:00 Principal diagnosis: Hypertensive urgency Interval history: Patient continues to improve daily. He is more alert today and interactive. Denies any chest pain. Light cough is noted without observed evidence of aspiration with eating breakfast. Blood pressure is still not to goal but improved. Patient is off the nitroglycerin drip. Creatinine is improved today at 1.7. PN Exam ([facility] Owned) Vital signs: Temp Pulse Resp BP Pulse Ox 99.7 F H 78 21 160/82 97 03/05/17 04:30 03/05/17 04:30 03/05/17 04:30 03/05/17 04:30 03/05/17 04:30 - Constitutional no acute distress - Routine Respiratory Exam Present: rhonchi - Routine Cardiovascular Exam Present: irregularly irregular - Urinary Catheter Management Serrato Cath placed during this visit: no A/P Progress Note ([facility] Own[facility]) (1) Asymptomatic hypertensive urgency Status: Acute Current Visit: Yes (2) Osteomyelitis Status: Acute Current Visit: Yes (3) ASCVD (arteriosclerotic cardiovascular disease) Status: Chronic Current Visit: Yes (4) Diabetes mellitus Status: Chronic Current Visit: Yes (5) PVD (peripheral vascular disease) Status: Chronic Current Visit: Yes (6) HHD (hypertensive heart disease) Status: Chronic Assessment and plan: Blood pressure improved on multiple medications. Not to goal yet. Current Visit: No (7) CRF (chronic renal failure) Status: Acute Assessment and plan: Creatinine continues to improve on current medical therapy. Current Visit: Yes
--- NOTE | 2017-03-05 09:01 | P.PN_ITS ---
Subjective PN (PG) Date: 03/05/17 Time: 08:00 Principal diagnosis: Hypertensive urgency Interval history: Patient continues to improve daily. He is more alert today and interactive. Denies any chest pain. Light cough is noted without observed evidence of aspiration with eating breakfast. Blood pressure is still not to goal but improved. Patient is off the nitroglycerin drip. Creatinine is improved today at 1.7. PN Exam ([facility]) Vital signs: Temp Pulse Resp BP Pulse Ox 99.7 F H 78 21 160/82 97 03/05/17 04:30 03/05/17 04:30 03/05/17 04:30 03/05/17 04:30 03/05/17 04:30 - Constitutional no acute distress - Routine Respiratory Exam Present: rhonchi - Routine Cardiovascular Exam Present: irregularly irregular - Urinary Catheter Management Serrato Cath placed during this visit: no A/P Progress Note ([facility]) (1) Asymptomatic hypertensive urgency Status: Acute Current Visit: Yes (2) Osteomyelitis Status: Acute Current Visit: Yes (3) ASCVD (arteriosclerotic cardiovascular disease) Status: Chronic Current Visit: Yes (4) Diabetes mellitus Status: Chronic Current Visit: Yes (5) PVD (peripheral vascular disease) Status: Chronic Current Visit: Yes (6) HHD (hypertensive heart disease) Status: Chronic Assessment and plan: Blood pressure improved on multiple medications. Not to goal yet. Current Visit: No (7) CRF (chronic renal failure) Status: Acute Assessment and plan: Creatinine continues to improve on current medical therapy. Current Visit: Yes
[2017-03-05 11:42] LABS: POC Glucose,Bedside 304 mg/dL
[2017-03-05 17:02] LABS: POC Glucose,Bedside 294 mg/dL
--- NOTE | 2017-03-05 17:22 | PC.NURSE ---
pt resting in bed, was able to pull himself with some assistance to sit on the edge of the bed for about 15 minutes. chest x-ray completed this shift. Family at bedside. no new issues noted at this time. safety measures are in place. Will continue to monitor
[2017-03-05 23:04] LABS: POC Glucose,Bedside 181 mg/dL
[2017-03-06] VITALS (9 sets, daily range): BP systolic 134–190; BP diastolic 69–97; PULSE 66–95; RESP 11–22; TEMP 36.4–37.4; O2SAT 2–95
--- NOTE | 2017-03-06 | FL_ITS ---
FL barium swallow modified: 03/06/2017 12:00 AM CLINICAL HISTORY: Dysphasia, hypertensive encephalopathy ORDERING PHYSICIAN: Taco Baum MD PATIENT AGE: 81 years TECHNIQUE: Patient administered varying consistencies of barium contrast, while viewed in lateral position under real-time fluoroscopy with cine recording. FLUOROSCOPY TIME: 4 minutes The study was performed in conjunction with speech pathologist. Please see that report & recommendations. FINDINGS: Patient was given varying consistencies of barium. This consisted of tiny, nectar, thin via straw an open cup, pudding, puree, mechanical soft, mixed, and pill with thin wash. There was aspiration of thin liquids with open cup. There was a cough reflex. Other consistencies were swallowed without difficulty IMPRESSION: Aspiration with thin liquids Please see speech pathologist report and recommendations.
--- NOTE | 2017-03-06 04:57 | PC.NURSE ---
PATIENT WAS BATHED EARLIER IN SHIFT AND HAS BEEN AWAKE SINCE THEN. IT APPEARS HE IS CONFUSED DUE TO THE FACT HE IS ARGUING WITH HIS WHO IS AT BEDSIDE. LUNGS ARE CLEAR WITH DIMINISHED BASES. VSS WITH NO ACUTE CHANGES. CALL LIGHT IN REACH . WILL CONTINUE TO MONITOR.
[2017-03-06 07:19] LABS: POC Glucose,Bedside 179 mg/dL
--- NOTE | 2017-03-06 08:36 | HMH.ACPN ---
Internal Medicine - PN: Subj *Date: 03/06/17 *Time: 08:36 Interval history: states he was restless during the night. Wants to get OOB. Not as much coughing and mentation is mostly clear. He is getting MBS today. Exam Vital signs and Labs for Last 24 Hours: Temp Pulse Resp BP Pulse Ox 99.1 F 90 20 190/92 94 L 03/06/17 08:06 03/06/17 08:06 03/06/17 08:06 03/06/17 08:06 03/06/17 08:06 Laboratory Results - last 24 hr 03/05/17 11:20: POC Glucose 304 03/05/17 16:37: POC Glucose 294 03/05/17 21:48: POC Glucose 181 03/06/17 05:34: POC Glucose 179 I & O for Last 24 hours: Intake & Output 03/03/17 03/04/17 03/05/17 03/06/17 11:59 11:59 11:59 11:59 Intake Total 1460 / 1460 2226.275 / 2226.275 2050 893 / 893 Output Total 0 / 0 0 / 0 Balance 1460 / 1460 2226.275 / 2226.275 2050 893 / 893 Weight 176 lb 4 oz 178 lb 178 lb 4 oz - Constitutional no acute distress - *Routine Respiratory Exam Present: CTA bilaterally - *Routine Cardiovascular Exam Present: RRR - *Routine Abdominal Exam Present: soft. Absent: tenderness - *Routine Extremities Exam Absent: edema Assessment and Plan (1) Malignant essential hypertension Current visit: No Status: Acute Category: Medical Code(s): I10 - Essential (primary) hypertension (2) Hypertensive encephalopathy Current visit: Yes Status: Resolved Category: Medical Code(s): I67.4 - Hypertensive encephalopathy (3) HHD (hypertensive heart disease) Current visit: No Status: Chronic Category: Medical Code(s): I11.9 - Hypertensive heart disease without heart failure (4) Osteomyelitis Current visit: Yes Status: Acute Category: Medical Code(s): M86.9 - Osteomyelitis, unspecified (5) ASCVD (arteriosclerotic cardiovascular disease) Current visit: Yes Status: Chronic Category: Medical Code(s): I25.10 - Atherosclerotic heart disease of [place] coronary artery without angina pectoris (6) Diabetes mellitus Current visit: Yes Status: Chronic Category: Medical Code(s): E11.9 - Type 2 diabetes mellitus without complications (7) PVD (peripheral vascular disease) Current visit: Yes Status: Chronic Category: Medical Code(s): I73.9 - Peripheral vascular disease, unspecified (8) Prostate cancer Current visit: Yes Status: Chronic Category: Medical Code(s): C61 - Malignant neoplasm of prostate (9) Generalized osteoarthritis Current visit: Yes Status: Acute Category: Medical Code(s): M15.9 - Polyosteoarthritis, unspecified - Assessment and plan all Dx Assessment and Plan for all problems:: For MBS today. Continue with PT. Will need placement for skilled care.
--- NOTE | 2017-03-06 09:10 | P.PN_ITS ---
Subjective PN (PG) Date: 03/06/17 Time: 09:08 Principal diagnosis: Hypertensive urgency Interval history: No complaints but restless night. Patient continues to improve daily. He is more alert today and interactive. Denies any chest pain. Blood pressure is still not to goal but improved. PN Exam ([facility]) Vital signs: Temp Pulse Resp BP Pulse Ox 99.1 F 90 20 190/92 94 L 03/06/17 08:06 03/06/17 08:06 03/06/17 08:06 03/06/17 08:06 03/06/17 08:06 - Routine Respiratory Exam Present: decreased breath sounds - Routine Cardiovascular Exam Present: RRR, murmur - Urinary Catheter Management Serrato Cath placed during this visit: no A/P Progress Note ([facility]) (1) Asymptomatic hypertensive urgency Status: Acute Assessment and plan: Continue current meds. BP not to goal but improved. Current Visit: Yes (2) Osteomyelitis Status: Acute Current Visit: Yes (3) ASCVD (arteriosclerotic cardiovascular disease) Status: Chronic Current Visit: Yes (4) Diabetes mellitus Status: Chronic Current Visit: Yes (5) PVD (peripheral vascular disease) Status: Chronic Current Visit: Yes (6) HHD (hypertensive heart disease) Status: Chronic Current Visit: No (7) CRF (chronic renal failure) Status: Acute Current Visit: Yes
[2017-03-06 09:25] LABS: Anion Gap 10.4 mEq/L (5-15); Blood Urea Nitrogen 38 mg/dL (7-18); Carbon Dioxide 28 mmol/L (21.0-32.0); Chloride 112 mmol/L (98-107); Creatinine Clearance Estimated 42 mL/min (0-300); Creatinine,Serum 1.63 mg/dL (0.70-1.30); Estimated Glomerular Filt Rate 41 ml/min (>60); GFR (African American) 50 ML/MIN (>60); Glucose 185 mg/dL (74-106); Potassium 3.4 mmoL/L (3.5-5.1); Sodium 147 mmol/L (136-145)
--- NOTE | 2017-03-06 10:23 | HMH.SLMBS2 ---
Speech & Language Evaluation Speech/Language Mod Barium Swallow Start: 03/06/17 09:54 Freq: once Status: Complete Protocol: Document 03/06/17 09:54 DEMAR (Rec: 03/06/17 10:23 DEMAR [id number]) MBS Recommendations Diet Dietary Recommendations Mechanical Soft Chopped Meats Thin Liquids Treatment/Strategies Strategy/Precaution Recommend Sitting Upright (90 deg) Liquids from Straw Small Bites and Sips Alternate Liquids/Solids Mod Barium Swallow Impressions Summary and Impressions Oral Phase Impression No Impairment (WFL) Oral Phase Summary Mr. Rivas was given the following consistenices: honey , nectar, thins via straw and open cup, pudding, pureed, mechanical soft, mixed, and pill with thin wash. No signs of oral phase impairment noted . Pharyngeal Phase Impression Mild Impairment Pharyngeal Phase Summary Mr. Rivas was given the following consistenices: honey , nectar, thins via straw and open cup, pudding, pureed, mechanical soft, mixed, and pill with thin wash. Mr. Rivas did exhibt aspiration of thin liquids via open cup. He did not swallow pill whole, instead he chewed the pill. Speech/Language MBS Assessment/Goals/Plan Assessment Date of Evaluation: 03/06/17 Evaluation Type Re-Evaluation/Revise POC Assessment/Problems Mr. Rivas exhibits coughing after nectar thick liquids are presented. It is recommended that MBS be completed to determine least restrictive diet. Does Patient Qualify for Service No Qualify/Failure Comment Mr. Rivas's test results indicate that he is on the most appropriate diet at this time. His impairments are due to decrease in strength in laryngeal muscles. HEP is provided to increase laryngeal elevation and timing of closure. Recommendations PHYSICIAN CERTIFICATION: The specified therapy services are required, authorized, and re
--- NOTE | 2017-03-06 10:43 | SW/DCPLANNER ---
I have spoke with patients again this AM regarding discharge plans. has stated that if there are no beds available for patient at [facility] she prefer patient go to a sister facility in [place]. Updated patient information has been faxed to Hallie at [facility]. I have also informed Hallie that if [facility] does not have a bed available at time of discharge (possibly early next week) then prefers sister facility in [place]. I will follow up with patient, , and [facility] on Thursday.
--- NOTE | 2017-03-06 12:24 | DIET.NUTRFU ---
Pt had Modified Barium Swallow today with ST. ST recommended that PT diet be changed to mechanical soft chopped with thin liquids. Pt current PO intake 25% avg. Pt receiving food preferences at lunch and dinner along with protein fortified soups to help supplement diet. Will continue to monitor.
[2017-03-06 17:05] LABS: POC Glucose,Bedside 193 mg/dL
--- NOTE | 2017-03-06 17:08 | PC.NURSE ---
Pt resting in bed at this time, has been up to chair with lift this shift, tolerated well, pt remains at his baseline, no changes noted this shift, will continue to monitor
[2017-03-07] VITALS (7 sets, daily range): BP systolic 154–186; BP diastolic 76–89; PULSE 69–89; RESP 20–24; TEMP 36.7–37.1; O2SAT 93–98
[2017-03-07 02:03] LABS: POC Glucose,Bedside 250 mg/dL
[2017-03-07 02:03] LABS: POC Glucose,Bedside 278 mg/dL
--- NOTE | 2017-03-07 06:04 | PC.NURSE ---
PATIENT HAS HAD A PLEASANT AFFECT THIS SHIFT. VSS. SOME CONFUSION NOTED WHEN ASKED SHORT TERM MEMORY QUESTIONS. AN OCCASIONAL NONSENSICAL QUESTION BUT IN GENERAL WAS IN GOOD MOOD. PATIENT HAS REMAINED AFEBRILE. CALL LIGHT HAS BEEN WITHIN REACH. CALL LIGHT IN REACH WITH BED IN LOW POSITION.WILL CONTINUE TO MONITOR.
[2017-03-07 06:53] LABS: POC Glucose,Bedside 197 mg/dL
--- NOTE | 2017-03-07 09:36 | HMH.ACPN ---
Internal Medicine - PN: Subj *Date: 03/07/17 *Time: 09:36 Interval history: He had a better night. Sleep is still eratic but has not been agitated. Tolerating up in chair for short periods. Appetite improved. MBS results noted. Exam Vital signs and Labs for Last 24 Hours: Temp Pulse Resp BP Pulse Ox 98.7 F 89 20 186/81 95 03/07/17 07:50 03/07/17 07:50 03/07/17 07:50 03/07/17 07:50 03/07/17 07:50 Laboratory Results - last 24 hr 03/06/17 12:47: POC Glucose 278 03/06/17 16:50: POC Glucose 193 03/06/17 20:49: POC Glucose 250 03/07/17 06:39: POC Glucose 197 I & O for Last 24 hours: Intake & Output 03/04/17 03/05/17 03/06/17 03/07/17 11:59 11:59 11:59 11:59 Intake Total 2226.275 / 2226.275 2050 893 / 893 1605 / 1605 Output Total 0 / 0 0 / 0 Balance 2226.275 / 2226.275 2050 893 / 893 1605 / 1605 Weight 178 lb 178 lb 4 oz - Constitutional no acute distress Comments: alert, [place] - *Routine Respiratory Exam Present: CTA bilaterally - *Routine Cardiovascular Exam Present: RRR - *Routine Abdominal Exam Present: soft. Absent: tenderness, distended - *Routine Extremities Exam Absent: edema Assessment and Plan (1) Malignant essential hypertension Current visit: No Status: Acute Category: Medical Code(s): I10 - Essential (primary) hypertension (2) Hypertensive encephalopathy Current visit: Yes Status: Resolved Category: Medical Code(s): I67.4 - Hypertensive encephalopathy (3) HHD (hypertensive heart disease) Current visit: No Status: Chronic Category: Medical Code(s): I11.9 - Hypertensive heart disease without heart failure (4) Osteomyelitis Current visit: Yes Status: Acute Category: Medical Code(s): M86.9 - Osteomyelitis, unspecified (5) ASCVD (arteriosclerotic cardiovascular disease) Current visit: Yes Status: Chronic Category: Medical Code(s): I25.10 - Atherosclerotic heart disease of [place] coronary artery without angina pectoris (6) Diabetes mellitus Current visit: Yes Status: Chronic Category: Medical Code(s): E11.9 - Type 2 diabetes mellitus without complications (7) PVD (peripheral vascular disease) Current visit: Yes Status: Chronic Category: Medical Code(s): I73.9 - Peripheral vascular disease, unspecified (8) Prostate cancer Current visit: Yes Status: Chronic Category: Medical Code(s): C61 - Malignant neoplasm of prostate (9) Generalized osteoarthritis Current visit: Yes Status: Acute Category: Medical Code(s): M15.9 - Polyosteoarthritis, unspecified (10) Debility Current visit: Yes Status: Acute Category: Medical Code(s): R53.81 - Other malaise - Assessment and plan all Dx Assessment and Plan for all problems:: BP still not at goal. Will increase Clonidine. Eating better so will d/c IVF. Continue to encourage OOB. Will need skilled care placement for rehab
--- NOTE | 2017-03-07 09:39 | P.PN_ITS ---
Internal Medicine - PN: Subj *Date: 03/07/17 *Time: 09:36 Interval history: He had a better night. Sleep is still eratic but has not been agitated. Tolerating up in chair for short periods. Appetite improved. MBS results noted. Exam Vital signs and Labs for Last 24 Hours: Temp Pulse Resp BP Pulse Ox 98.7 F 89 20 186/81 95 03/07/17 07:50 03/07/17 07:50 03/07/17 07:50 03/07/17 07:50 03/07/17 07:50 Laboratory Results - last 24 hr 03/06/17 12:47: POC Glucose 278 03/06/17 16:50: POC Glucose 193 03/06/17 20:49: POC Glucose 250 03/07/17 06:39: POC Glucose 197 I & O for Last 24 hours: Intake & Output 03/04/17 03/05/17 03/06/17 03/07/17 11:59 11:59 11:59 11:59 Intake Total 2226.275 / 2226.275 2050 893 / 893 1605 / 1605 Output Total 0 / 0 0 / 0 Balance 2226.275 / 2226.275 2050 893 / 893 1605 / 1605 Weight 178 lb 178 lb 4 oz - Constitutional no acute distress Comments: alert, [place] - *Routine Respiratory Exam Present: CTA bilaterally - *Routine Cardiovascular Exam Present: RRR - *Routine Abdominal Exam Present: soft. Absent: tenderness, distended - *Routine Extremities Exam Absent: edema Assessment and Plan (1) Malignant essential hypertension Current visit: No Status: Acute Category: Medical Code(s): I10 - Essential (primary) hypertension (2) Hypertensive encephalopathy Current visit: Yes Status: Resolved Category: Medical Code(s): I67.4 - Hypertensive encephalopathy (3) HHD (hypertensive heart disease) Current visit: No Status: Chronic Category: Medical Code(s): I11.9 - Hypertensive heart disease without heart failure (4) Osteomyelitis Current visit: Yes Status: Acute Category: Medical Code(s): M86.9 - Osteomyelitis, unspecified (5) ASCVD (arteriosclerotic cardiovascular disease) Current visit: Yes Status: Chronic Category: Medical Code(s): I25.10 - Atherosclerotic heart disease of [place] coronary artery without angina pectoris (6) Diabetes mellitus Current visit: Yes Status: Chronic Category: Medical Code(s): E11.9 - Type 2 diabetes mellitus without complications (7) PVD (peripheral vascular disease) Current visit: Yes Status: Chronic Category: Medical Code(s): I73.9 - Peripheral vascular disease, unspecified (8) Prostate cancer Current visit: Yes Status: Chronic Category: Medical Code(s): C61 - Malignant neoplasm of prostate (9) Generalized osteoarthritis Current visit: Yes Status: Acute Category: Medical Code(s): M15.9 - Polyosteoarthritis, unspecified (10) Debility Current visit: Yes Status: Acute Category: Medical Code(s): R53.81 - Other malaise - Assessment and plan all Dx Assessment and Plan for all problems:: BP still not at goal. Will increase Clonidine. Eating better so will d/c IVF. Continue to encourage OOB. Will need skilled care placement for rehab
[2017-03-07 11:24] LABS: POC Glucose,Bedside 261 mg/dL
[2017-03-07 16:21] LABS: POC Glucose,Bedside 261 mg/dL
--- NOTE | 2017-03-07 17:34 | PC.NURSE ---
PATIENT IS RESTING IN BED AT THIS TIME WITH AT BEDSIDE. PATIENTS LUNGS ARE CLEAR BUT DIMINISHED IN THE BASES. VITAL SIGNS ARE STABLE, B/P WAS A LITTLE HIGH THIS AM , BUT AFTER MEDICATIONS IT CAME DOWN. THIS SEEMS TO BE A MORNING THING WITH THIS PATIENT. NO DISTRESS NOTED AT THIS TIME, CALL RYAN WITHIN REACH. PATIENT DENIES ANY NEEDS, WILL CONTINUE TO MONITOR.
[2017-03-08] VITALS (8 sets, daily range): BP systolic 131–193; BP diastolic 67–89; PULSE 78–85; RESP 20–22; TEMP 36.4–37.2; O2SAT 94–96
[2017-03-08 04:50] LABS: POC Glucose,Bedside 234 mg/dL
--- NOTE | 2017-03-08 06:53 | PC.NURSE ---
PT AWAKE IN BED. WAITING FOR BREAKFAST TRAY. PT HAS SLEPT IN INTERVALS T/O NIGHT. FAMILY AT BEDSIDE. V/S ARE STABLE. PT REMAINS ON ROOM AIR AT THIS TIME. MEDICATIONS ADMINISTERED PER APR. NO OTHER CONCERNS AT THIS TIME. WILL CONTINUE TO MONITOR.
[2017-03-08 07:06] LABS: POC Glucose,Bedside 187 mg/dL
--- NOTE | 2017-03-08 08:39 | HMH.ACPN ---
Internal Medicine - PN: Subj *Date: 03/08/17 *Time: 08:39 Interval history: No new problems. Did not get OOB yesterday. Still awaiting placement Exam Vital signs and Labs for Last 24 Hours: Temp Pulse Resp BP Pulse Ox 98.3 F 80 22 193/89 95 03/08/17 06:53 03/08/17 06:53 03/08/17 06:53 03/08/17 06:53 03/08/17 06:53 Laboratory Results - last 24 hr 03/07/17 11:10: POC Glucose 261 03/07/17 16:14: POC Glucose 261 03/07/17 21:05: POC Glucose 234 03/08/17 06:28: POC Glucose 187 I & O for Last 24 hours: Intake & Output 03/05/17 03/06/17 03/07/17 03/08/17 11:59 11:59 11:59 11:59 Intake Total 2050 893 / 893 1605 / 1605 1471 / 1471 Output Total 0 / 0 Balance 2050 893 / 893 1605 / 1605 1471 / 1471 Weight 178 lb 4 oz - Constitutional Comments: alert, conversant - *Routine Respiratory Exam Comments: few coarse rhonchi, no wheezes - *Routine Cardiovascular Exam Present: RRR - *Routine Abdominal Exam Present: soft. Absent: tenderness, distended Assessment and Plan (1) Malignant essential hypertension Current visit: No Status: Acute Category: Medical Code(s): I10 - Essential (primary) hypertension (2) Hypertensive encephalopathy Current visit: Yes Status: Resolved Category: Medical Code(s): I67.4 - Hypertensive encephalopathy (3) HHD (hypertensive heart disease) Current visit: No Status: Chronic Category: Medical Code(s): I11.9 - Hypertensive heart disease without heart failure (4) Osteomyelitis Current visit: Yes Status: Acute Category: Medical Code(s): M86.9 - Osteomyelitis, unspecified (5) ASCVD (arteriosclerotic cardiovascular disease) Current visit: Yes Status: Chronic Category: Medical Code(s): I25.10 - Atherosclerotic heart disease of [place] coronary artery without angina pectoris (6) Diabetes mellitus Current visit: Yes Status: Chronic Category: Medical Code(s): E11.9 - Type 2 diabetes mellitus without complications (7) PVD (peripheral vascular disease) Current visit: Yes Status: Chronic Category: Medical Code(s): I73.9 - Peripheral vascular disease, unspecified (8) Prostate cancer Current visit: Yes Status: Chronic Category: Medical Code(s): C61 - Malignant neoplasm of prostate (9) Generalized osteoarthritis Current visit: Yes Status: Acute Category: Medical Code(s): M15.9 - Polyosteoarthritis, unspecified (10) Debility Current visit: Yes Status: Acute Category: Medical Code(s): R53.81 - Other malaise - Assessment and plan all Dx Assessment and Plan for all problems:: Staff is asked to get patient up to chair today. Awaiting disposition for skilled rehab
[2017-03-08 13:09] LABS: POC Glucose,Bedside 238 mg/dL
[2017-03-08 16:35] LABS: POC Glucose,Bedside 234 mg/dL
--- NOTE | 2017-03-08 16:57 | PC.NURSE ---
PATIENT HAS BEEN UP TO THE CHAIR TODAY PER THE MECHANICAL LIFT. HE IS BACK IN THE BED AT THIS TIME, WITH FAMILY AT BEDSIDE. BLOOD PRESSURE WAS ELEVATED THIS AM, BUT AFTER HIS MORNING MEDICATIONS IT WENT BACK DOWN, THIS CONTINUES TO BE A EVERY MORNING OCCURRENCE.LUNG SOUNDS ARE STILL DIMINISHED IN THE BASES. PATIENT IS A/O X 3 BUT GETS CONFUSED AT TIMES. DENIES ANY NEEDS, CALL RYAN IS WITHIN REACH, NO DISTRESS NOTED WILL CONTINUE TO MONITOR.
[2017-03-08 20:01] LABS: POC Glucose,Bedside 293 mg/dL
[2017-03-09] VITALS: BP 132/79; PULSE 68; RESP 20; TEMP 36.4; O2SAT 94
[2017-03-09 04:00] VITALS: BP 177/83; PULSE 80; RESP 16; TEMP 37; O2SAT 95
--- NOTE | 2017-03-09 04:17 | PC.NURSE ---
PATIENT HAS SLEPT ON AND OFF THIS SHIFT. PATIENT PLEASANT AND COMMUNICATIVE TO STAFF. HE IS TOLERATING THIN LIQUIDS WITH STRAW WELL. BLOOD PRESSURE WAS SLIGHTLY ELEVATED PRIOR TO ADMINISTRATION OF HS BLOOD PRESSURE MEDICATIONS, BUT HAS LOWERED AND REMAINED STABLE SINCE. NO C/O PAIN VOICED. CONTINUE TO TURN AND REPOSITION PATIENT EVERY 2 HOURS. PATIENT CURRENTLY IN BED RESTING. NO OTHER PROBLEMS NOTED AT THIS TIME. VSS. WILL CONTINUE TO MONITOR. SAFETY MEASURES IN PLACE, CALL LIGHT IN REACH.
[2017-03-09 04:48] VITALS: O2SAT 93
[2017-03-09 06:16] LABS: POC Glucose,Bedside 188 mg/dL
[2017-03-09 08:00] VITALS: BP 188/80; PULSE 86; RESP 16; TEMP 37.2; O2SAT 93
--- NOTE | 2017-03-09 08:16 | HMH.DCSUM ---
General - General Admission date: 02/24/17 <Taco Baum - 03/09/17 08:30> Discharge date: 03/09/17 <Ambika Orozco - 03/09/17 10:05> HPI HPI: *History of present illness: Mr Rivas is a 81 year old male with a history of ASCVD, AVR, PVD Type 2 DM, RI and prostate cancer who was seen in Dr. Blunt's office with noted high BP; he then had an appointment with production control pegboard clerk with BP noted to be extremely high (SBP>200 and DBP >110). Dr. Bhatia consulted with Dr. Baum and he was directly admitted to [facility] and placed on Nitroprusside gtt Recent MRI of the left great toe revealed osteomyelitis; he was seeing Dr. Bhatia for clearance for surgical intervention by Dr. Baeza. Patient was asymptomatic and denied CP and SOB. <Ambika Orozco - 03/09/17 10:05> Objective Vital signs: Temp Pulse Resp BP Pulse Ox 98.6 F 80 16 177/83 93 L 03/09/17 04:00 03/09/17 04:00 03/09/17 04:00 03/09/17 04:00 03/09/17 04:48 <Ambika Orozco - 03/09/17 10:05> Temp Pulse Resp BP Pulse Ox 98.6 F 80 16 177/83 93 L 03/09/17 04:00 03/09/17 04:00 03/09/17 04:00 03/09/17 04:00 03/09/17 04:48 <Taco Baum - 03/09/17 08:30> Narrative: Vital signs and Labs for Last 24 Hours: Temp Pulse Resp BP Pulse Ox 97.4 F L 78 13 196/84 95 02/25/17 05:14 02/25/17 07:00 02/25/17 07:00 02/25/17 07:00 02/25/17 07:00 Short CBC 02/25/17 Range/Units 06:22 WBC 8.8 (4.8-10.8) K/mm3 Hgb 9.1 L (14.1-18.0) g/dL Hct 28.7 L (42.0-52.0) % Plt Count 382 (142-424) K/mm3 [facility] 02/25/17 06:22 Sodium 138 Potassium 3.9 Chloride 105 Carbon Dioxide 26 BUN 43 H Creatinine 2.40 H Glucose 220 H Calcium 9.8 Liver Function 02/25/17 Range/Units 06:22 Total Bilirubin 0.3 (0.2-1.0) mg/dL AST 29 (15-37) U/L ALT 20 (12-78) U/L Alkaline Phosphatase 43 L (46-116) U/L Albumin 3.0 L (3.4-5.0) gm/dL <Taco Baum - 02/25/17 10:59> I & O for Last 24 hours: Intake & Output 02/22/17 02/23/17 02/24/17 02/25/17 11:59 11:59 11:59 11:59 Intake Total 879.800 / 879.800 Output Total 795 / 795 Balance 84.800 / 84.800 <Taco Baum 02/25/17 10:59> no acute distress <Ambika Orozco 02/24/17 19:14> - *Routine HEENT Exam Head: Present: normocephalic, atraumatic [facility] 02/24/[facility] 19:14> Eye: Present: PERRL. Absent: conjunctival icterus <[facility] 02/24/17 19:14> ENT: Present: mucous membranes moist, oropharynx clear <[facility] 02/24/17 19:14> - *Routine Neck Exam Present: supple, full ROM, carotid bruit. Absent: lymphadenopathy, thyromegaly <[facility] 02/24/17 19:14> - *Routine Respiratory Exam Present: CTA bilaterally. Absent: respiratory distress, rhonchi, wheezes, crackles <[facility] 02/24/17 19:14> - *Routine Cardiovascular Exam Present: RRR, murmur <[facility] 02/24/17 19:14> - *Routine Abdominal Exam Present: soft. Absent: tenderness, distended, organomegaly, mass <Ambika Orozco 02/24/17 19:14> - *Routine Extremities Exam Present: edema. Absent: calf tenderness <Stacia Orozcohy 02/24/17 19:14> Comments: weekly bilateral leg dressings per PT for edema/drainage; will consult in AM; left great toe dressing changed; see picture; wound on dorsal aspect clean and dry <Ambika Orozco 02/24/17 19:14> - *Routine Neurological Exam Present: alert, oriented X3 <PamAmbika 02/24/17 19:14> <PamAmbika 03/09/17 09:29> Hospital Course Hospital Course: On admission patient was started on a Nipride Gtt for BP control. Patient was followed by cardiology throughout his stay for adjustments of the Gtt and all BP meds. Patient did become confused to the point of becoming agitated and combative. Haldol seemed to help the most. CT of the head was done without contrast due to CRF. It revealed nothing acute. He did refuse PO meds
--- NOTE | 2017-03-09 08:30 | P.DS_ITS ---
General - General Admission date: 02/24/17 <Taco Baum - 03/09/17 08:30> Discharge date: 03/09/17 <Ambika Orozco - 03/09/17 10:05> HPI HPI: *History of present illness: Mr Rivas is a 81 year old male with a history of ASCVD, AVR, PVD Type 2 DM, RI and prostate cancer who was seen in Dr. Blunt's office with noted high BP; he then had an appointment with emergency department physician with BP noted to be extremely high ( SBP>200 and DBP >110). Dr. Bhatia consulted with Dr. Baum and he was directly admitted to [facility] and placed on Nitroprusside gtt Recent MRI of the left great toe revealed osteomyelitis; he was seeing Dr. Bhatia for clearance for surgical intervention by Dr. Baeza. Patient was asymptomatic and denied CP and SOB. <Ambika Orozco - 03/09/17 10:05> Objective Vital signs: Temp Pulse Resp BP Pulse Ox 98.6 F 80 16 177/83 93 L 03/09/17 04:00 03/09/17 04:00 03/09/17 04:00 03/09/17 04:00 03/09/17 04:48 <Ambika Orozco - 03/09/17 10:05> Temp Pulse Resp BP Pulse Ox 98.6 F 80 16 177/83 93 L 03/09/17 04:00 03/09/17 04:00 03/09/17 04:00 03/09/17 04:00 03/09/17 04:48 <Taco Baum - 03/09/17 08:30> Narrative: Vital signs and Labs for Last 24 Hours: Temp Pulse Resp BP Pulse Ox 97.4 F L 78 13 196/84 95 02/25/17 05:14 02/25/17 07:00 02/25/17 07:00 02/25/17 07:00 02/25/17 07:00 Short CBC 02/25/17 Range/Units 06:22 WBC 8.8 (4.8-10.8) K/mm3 Hgb 9.1 L (14.1-18.0) g/dL Hct 28.7 L (42.0-52.0) % Plt Count 382 (142-424) K/mm3 [facility] 02/25/17 06:22 Sodium 138 Potassium 3.9 Chloride 105 Carbon Dioxide 26 BUN 43 H Creatinine 2.40 H Glucose 220 H Calcium 9.8 Liver Function 02/25/17 Range/Units 06:22 Total Bilirubin 0.3 (0.2-1.0) mg/dL AST 29 (15-37) U/L ALT 20 (12-78) U/L Alkaline Phosphatase 43 L (46-116) U/L Albumin 3.0 L (3.4-5.0) gm/dL <Taco Baum - 02/25/17 10:59> I & O for Last 24 hours: Intake & Output 02/22/17 02/23/17 02/24/17 02/25/17 11:59 11:59 11:59 11:59 Intake Total 879.800 / 879.800 Output Total 795 / 795 Balance 84.800 / 84.800 <Taco Baum 02/25/17 10:59> no acute distress <OrozcoAmbika - 02/24/17 19:14> - *Routine HEENT Exam Head: Present: normocephalic, atraumatic <OrozcoAmbika - 02/24/17 19:14> Eye: Present: PERRL. Absent: conjunctival icterus <OrozcoAmbika - 02/24/17 19:14> ENT: Present: mucous membranes moist, oropharynx clear <OrozcoAmbika - 19:14> - *Routine Neck Exam Present: supple, full ROM, carotid bruit. Absent: lymphadenopathy, thyromegaly <OrozcoAmbika - 02/24/17 19:14> - *Routine Respiratory Exam Present: CTA bilaterally. Absent: respiratory distress, rhonchi, wheezes, crackles <OrozcoAmbika - 02/24/17 19:14> - *Routine Cardiovascular Exam Present: RRR, murmur [facility] 19:14> - *Routine Abdominal Exam Present: soft. Absent: tenderness, distended, organomegaly, mass <[facility] 02/24/17 19:14> - *Routine Extremities Exam Present: edema. Absent: calf tend
[2017-03-09 09:15] VITALS: O2SAT 95
[2017-03-09 10:39] VITALS: BP 142/78
[2017-03-09 11:55] LABS: POC Glucose,Bedside 267 mg/dL
== END 2017-03-09 12:13 | DRG 79 ==
LOC: 2ND 02-27 02:52 → ICU 03-01 01:32 → 2ND 03-02 18:52
PROVIDERS: Family Medicine; Internal Medicine; Physician Assistant; Admitting Provider Family Medicine; PCP Family Medicine; Visit Provider Family Medicine
DX: I67.4 Hypertensive encephalopathy (principal); C61 Malignant neoplasm of prostate; E11.9 Type 2 diabetes mellitus without complications; I11.9 Hypertensive heart disease without heart failure
CPT/HCPCS: 29580; 36415; 70371; 70450; 71045; 80048; 80053; 82962; 83735; 84443; 85007; 85025; 87507; 92507; 92526; 92610; 92611; 93005; 93976; 94760; 94761; 97163; 97530; 97597

== ENCOUNTER 2017-04-08 08:45 | Outpatient (CLI) | payer SELFPAY ==
[2017-04-08] VITALS (20 sets, daily range): BP systolic 107–161; BP diastolic 53–83; PULSE 57–82; RESP 18; TEMP 36.2–36.9; O2SAT 97–99; BMI 26.2
[2017-04-08 09:26] LABS: Hemoglobin 7.6 g/dL (14.1-18.0)
--- NOTE | 2017-04-08 13:23 | PC.NURSE ---
pt ate sandwich and drinking water, toelrated well- 1212
[2017-04-08 15:10] LABS: Hematocrit 29.8 % (42.0-52.0)
[2017-04-08 15:41] LABS: Hemoglobin 9.4 g/dL (14.1-18.0)
--- NOTE | 2017-04-08 15:52 | PC.NURSE ---
1547-spoke with charles babin at [facility], gave bloodwork results hgb-9.4 and hct-29.8, vitals stable, iv dc'd pt in waiting room wiating on bus with spouse pt stable
== END 2017-04-08 15:50 | disposition home or self-care (01) ==
LOC: INF 14:28
PROVIDERS: PCP Family Medicine; Visit Provider Family Medicine
DX: D64.9 Anemia, unspecified (principal)
CPT/HCPCS: 36430; 85014; 85018; 86850; P9016

== ENCOUNTER → 2017-05-19 10:12 | Outpatient (CLI) | payer SELFPAY ==
--- NOTE | 2017-05-19 | CA_ITS ---
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 PATIENT INFORMATION HEIGHT: 69 WEIGHT:180 GENDER: Male B/P:108/67 2-D/M-MODE INTERPRETATION: 2-D MEASUREMENTS OBSERVED VALUES IN CMS Right Ventricular Dimension (RVDd) 3.1 Interventricular Septum (Thickness)(IVsd) 1.2 Left Ventricular Internal Dimensions(LVIDd) 3.9 Left Ventricular Posterior Wall (Thickness)(LVPWd) 1.2 Aortic Root 1.8 Aortic Cusp Separation Left Atrial Dimensions (LAD) 4.8 2D 1. Technically difficult study because of the patient's factor and poor acoustic windows 2. The left atrium is mildly enlarged, left ventricle is normal size, there is mild concentric left ventricular hypertrophy seen, visually estimated ejection fraction 55% with no obvious regional wall motion abnormality. 3. The right atrium and right ventricle are mildly enlarged with normal contractility. 4. There is mild prosthetic valve noted in the aortic position, the valve is well seated 5. The mitral and tricuspid valve leaflets are minimally thickened. 6. The pulmonic valve is poorly visualized 7. No significant pericardial effusion noted. DOPPLER INTERROGATION: 1. The maximum aortic out flow velocity across the prosthetic valve is approximately 2 m/s, resulting in a mean gradient across valve of 8 mmHg which is within physiological range for this type of valve, there is no significant aortic outflow obstruction or aortic insufficiency. 2. The mitral inflow velocity within normal range, there is no mitral stenosis, there is mild mitral regurgitation. 3. There is mild tricuspid regurgitation noted, tricuspid and jet velocity insufficient for calculation of the right ventricular systolic pressure. CONCLUSION: 1. Mildly enlarged left atrium, normal left ventricular size, mild concentric left ventricular hypertrophy, visually estimated ejection fraction 55% with no obvious regional wall motion abnormality. Diastolic parameters are inconclusive. 2. Normal functioning bio prosthetic valve in aortic position without significant aortic outflow obstruction or aortic insufficiency. 3. Mild mitral and tricuspid regurgitation 4. No significant pericardial effusion noted.
== END ==
PROVIDERS: PCP Family Medicine; Visit Provider Nurse Practitioner Family
DX: I25.10 Atherosclerotic heart disease of native coronary artery without angina pectoris (principal); R55 Syncope and collapse
CPT/HCPCS: 93225; 93226; 93306

== ENCOUNTER 2017-06-11 11:00 | Outpatient (CLI) | payer MEDICARE, BC, SELFPAY ==
[2017-06-11] VITALS (20 sets, daily range): BP systolic 113–140; BP diastolic 57–82; PULSE 67–96; RESP 18; TEMP 36.6–36.7; O2SAT 96–98; BMI 26.1
[2017-06-11 17:25] LABS: Hematocrit 19.5 % (42.0-52.0)
[2017-06-11 17:32] LABS: Hemoglobin 5.7 g/dL (14.1-18.0)
[2017-06-11 17:46] LABS: Hematocrit 25.2 % (42.0-52.0)
[2017-06-11 17:49] LABS: Hemoglobin 7.7 g/dL (14.1-18.0)
--- NOTE | 2017-06-11 18:02 | PC.NURSE ---
06/11/2017 1800-report called to [facility] and spoke with mehran, the accepting rn. report of current pt condition given. post h/h noted as 7.7/25.2. md aware of post level and ok with pt to return to [facility].
== END 2017-06-11 17:40 | disposition home or self-care (01) ==
LOC: INF 11:17
PROVIDERS: PCP Family Medicine; Visit Provider Family Medicine
DX: D64.9 Anemia, unspecified (principal)
CPT/HCPCS: 36430; 85014; 85018; 86850; P9016

== ENCOUNTER 2017-07-02 08:33 | Outpatient (CLI) | payer MEDICARE, BC, SELFPAY ==
[2017-07-02] VITALS (20 sets, daily range): BP systolic 90–147; BP diastolic 45–74; PULSE 75–84; RESP 16–20; TEMP 36.3–36.6; O2SAT 95–99; BMI 26.1
[2017-07-02 09:19] LABS: Hematocrit 21.1 % (42.0-52.0); Hemoglobin 6.3 g/dL (14.1-18.0)
[2017-07-02 15:53] LABS: Hematocrit 26.7 % (42.0-52.0)
[2017-07-02 16:22] LABS: Hemoglobin 8.3 g/dL (14.1-18.0)
== END 2017-07-02 16:05 ==
LOC: INF 08:33
PROVIDERS: PCP Family Medicine; Visit Provider Family Medicine
DX: D64.9 Anemia, unspecified (principal)
CPT/HCPCS: 36430; 85014; 85018; 86850; P9016